=== PATIENT | male | born 1965 | race Caucasian/White ===

== ENCOUNTER 2020-07-05 22:08 | Inpatient (IN) | payer BC ==
--- NOTE | 2020-07-06 00:51 | PDOC.HHP ---
Hospitalist HPI - History of Present Illness Chest pain History of Present Illness: 55-year-old gentleman with a history of seasonal allergies presented to [facility] ER due to chest pain for about 4 days duration. Patient described midsternal and left chest pain of maximum intensity 8-10 over 10. Patient denied any fever or cough. He denied any shortness of breath or fatigue. His troponin was negative but d-dimer was elevated. 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 The mass measures 8.6 x 7 x 6 cm. Patient was then transferred here for further eval uation. Hospitalist ROS - Review of Systems Other: Except as documented, all other systems reviewed and negative. Hospitalist History - Past Medical History Other Medical History: Seasonal allergies - Past Surgical History Other Surgical History: Cholecystectomy. Anal fissure surgery - Family History Family History: reports: cancer (Father had colon cancer) - Social History Smoking Status: Former smoker (Remote history of smoking) Alcohol: reports: Occassional Drugs: reports: none Living Situation: With Family - Exam General Appearance: NAD, awake alert Eye: PERRL, anicteric sclera ENT: normocephalic atraumatic, no oropharyngeal lesions Neck: supple, symmetric, no JVD Heart: RRR, no murmur Respiratory: CTAB Respiratory - other findings: Diminished breath sounds in the left region of the lung. Gastrointestinal: soft, non-tender, non-distended, normal bowel sounds Extremities: no cyanosis, no edema Skin: normal turgor, no rashes Neurological: cranial nerve grossly intact, no focal deficits Musculoskeletal: normal tone, normal strength Psychiatric: normal affect, A&O x 3 Hospitalist H&P A/P - Problem (1) Pancoast tumor of left lung Code(s): C34.12 - MALIGNANT NEOPLASM OF UPPER LOBE, LEFT BRONCHUS OR LUNG Status: Acute (2) Metastasis Code(s): C79.9 - SECONDARY MALIGNANT NEOPLASM OF UNSPECIFIED SITE Status: Acute (3) Chest pain Code(s): R07.9 - CHEST PAIN, UNSPECIFIED Status: Acute - Plan Plan: Admit to the medical floor. We will start empiric antibiotics-Levaquin. Pain management with IV morphine and oral [place]. Supplemental oxygen as needed. Bronchodilators as needed. Consult to IR for tissue biopsy.
[2020-07-06] MEDS: Morphine 2 MG/ML VIAL SLOW IVP PRN ×2 (01:02→05:19)
[2020-07-06] MEDS: Sodium Chloride 0.9% 1,000 ML IV SCH ×2 (01:04→20:40)
[2020-07-06 04:45] LABS: #Eosinphils 0.2 thou/uL (0.0-0.7); #Lymphocytes 1.2 thou/uL (1.20-3.40); #Monocytes 0.4 thou/uL (0.11-0.59); #Neutrophils 3.7 thou/uL (1.40-6.50); %Basophils 0.2 % (0.0-1.0); %Eosinophils 3.9 % (0.0-10.0); %Lymphocytes 21.6 % (21.0-51.0); %Monocytes 7.2 % (0.0-10.0); %Neutrophils 67.2 % (42.0-75.0); Hemoglobin 12.4 g/dL (14.0-18.0); Mean Corpuscular HGB CONC 34.7 g/dL (32.0-36.0); Mean Corpuscular Hemoglobin 32.5 pg (27.0-31.0); Mean Corpuscular Volume 93.5 fL (78.0-98.0); Mean Platelet Volume 7.2 fL (7.4-10.4); Platelet Count 231 thou/uL (130-400); RBC Distribution Width 11.7 % (11.5-14.5); Red Blood Cell (RBC) Count 3.81 mill/uL (4.70-6.10); White Blood Cell (WBC) Count 5.5 thou/uL (4.8-10.8)
[2020-07-06 05:15] LABS: Anion Gap 12 mmol/L (10-20); BUN (Urea Nitrogen) 15 mg/dL (8.4-25.7); Calc. Creatinine Clearance 193 mL/min (70-130); Calcium 8.1 mg/dL (7.8-10.44); Carbon Dioxide 24 mmol/L (22-29); Chloride 102 mmol/L (98-107); Estimated GFR-MDRD Greater than 90; Glucose 111 mg/dL (70-105); Potassium 3.5 mmol/L (3.5-5.1); Sodium 134 mmol/L (136-145)
[2020-07-06] MEDS: HYDROcodone/Acetaminophen 5/325 mg Tablet PO PRN ×3 (09:20→20:40)
--- NOTE | 2020-07-06 11:36 | PDOC.HOSPP ---
- Subjective Encounter Date: 07/06/20 Encounter Time: 10:45 Subjective: no sob or palp has retrosternal chest dyscomfort with deep inpiration no fever or exposure to covid in immediate family works in oil field (regulatory product manager) quit smoking 30 yrs back, smoked 1/2 pack x 5 years before that no family h/o lung cancer, father is living had colon ca - Objective Vital Signs & Weight: Vital Signs (12 hours) Temp Pulse Resp BP Pulse Ox 07/06/20 11:15 99.0 F 66 18 132/78 98 07/06/20 07:48 66 12 07/06/20 07:32 98.3 F 64 19 131/79 96 07/06/20 03:31 97.6 F 65 18 121/64 100 07/06/20 02:13 63 12 Weight Weight 302 lb 6.4 oz Result Diagrams: 07/06/20 04:07 07/06/20 04:07 Hospitalist ROS - Medication Medications: Active Medications Generic Name Dose Route Start Last Admin Trade Name Freq PRN Reason Stop Dose Admin Hydrocodone Bitart/Acetaminophen 1 tab 07/06/20 00:42 07/06/20 09:20 Hydrocodone/Acetaminophen 5/325 Mg Tablet PO 1 tab Q4H PRN Administration Moderate Pain (4-6) Albuterol/Ipratropium 3 ml 07/06/20 01:00 07/06/20 07:48 Ipratropium/Albuterol Sulfate 3 Ml Neb NEB 3 ml [id number] PRAVIN Administration Sodium Chloride 1,000 mls @ 50 mls/hr 07/06/20 00:45 07/06/20 01:04 Normal Saline 0.9% IV 1,000 mls .Q20H PRAVIN Administration Levofloxacin 750 mg/ Device 150 mls @ 100 mls/hr 07/06/20 01:00 07/06/20 01:04 IVPB 150 mls Q24HR PRAVIN Administration Morphine Sulfate 2 mg 07/06/20 00:42 07/06/20 05:19 Morphine 2 Mg/Ml Vial SLOW IVP 2 mg Q4H PRN Administration Severe Pain (7-10) - Exam General Appearance: awake alert Eye: PERRL, anicteric sclera ENT: no oropharyngeal lesions, moist mucosa Neck: supple, no JVD Heart: RRR, no murmur Respiratory: no wheezes, no rales Gastrointestinal: soft, non-tender, non-distended, normal bowel sounds Extremities: no cyanosis, no edema Neurological: cranial nerve grossly intact, no focal deficits Psychiatric: normal affect, A&O x 3 Hosp A/P (1) Mass of left lung Code(s): R91.8 - OTHER NONSPECIFIC ABNORMAL FINDING OF LUNG FIELD Status: Acute (2) Obesity Code(s): E66.9 - OBESITY, UNSPECIFIED Status: Chronic Qualifiers: Obesity classification: adult class 3 (BMI >= 40) Body mass index: BMI 40.0-44.9 (3) Pleuritic chest pain Code(s): R07.81 - PLEURODYNIA Status: Acute - Plan had CT chest with contrast done at [facility] ER, showed a mass of 8.6 x 7 x 6 cms with erosion of 4th left rib and T3,4 vertebrae will need biopsy, await pulm advice is on empiric levaquin, may dc if ok with pulm nebs prn
--- NOTE | 2020-07-06 13:34 | RAD ---
PORTABLE CHEST: 07/06/20 HISTORY: Left lung mass. COMPARISON: None. FINDINGS: Heart size is within normal limits. The lungs are clear of any infiltrative process. I do not see any obvious mass on this exam. Slight increased density in the left hilar region is not definitive for a mass. IMPRESSION: No active intrathoracic disease. POS: OFF
--- NOTE | 2020-07-06 13:41 | CON ---
DATE OF CONSULTATION: 07/06/2020 REASON FOR CONSULTATION: Left upper lobe posterior tumor. HISTORY OF PRESENT ILLNESS: The patient is a pleasant 55-year-old male, who presented to the [facility] last night with a 4-day history of anterior chest pain. He was ruled out for COVID. He had a CT performed showing 8 x 7 x 6 cm left upper lobe posterior mass abutting the thoracic spinal column with invasion in the left 4th rib and the T3 and T4 thoracic vertebrae. Surprisingly, he does not have much pain posteriorly. He has a remote smoking history, having quit about 30 years ago. He has no history of TB exposure. He has no history of incarceration. He has lived all his life in [place]. PAST MEDICAL HISTORY: Remarkable for seasonal allergies. PAST SURGICAL HISTORY: Cholecystectomy, anal fissure surgery. FAMILY MEDICAL HISTORY: Father had colon cancer. SOCIAL HISTORY: Remote history of smoking. Does not consume alcohol except on special occasions. He is a manager furniture. REVIEW OF SYSTEMS: Twelve-point review of systems is otherwise negative including no numbness or tingling or weakness in extremities. PHYSICAL EXAMINATION: VITAL SIGNS: Temperature 99, pulse 66, respirations 18, O2 saturation 98%, and blood pressure 132/78. HEENT: Unremarkable. NECK: No adenopathy or JVD. LUNGS: Clear to auscultation. CARDIAC: S1 and S2 regular without murmur. ABDOMEN: Soft and nontender. EXTREMITIES: No clubbing, cyanosis, or edema. NEUROLOGIC: He has equal sensation in arms or legs. Motor strength 5/5 throughout. No reflexive deficits. No motor deficits. LABORATORY DATA: Sodium 134, potassium 3.5, chloride 102, CO2 of 24, BUN 15, creatinine 0.8, and glucose 111. White blood cell count 5.5, hematocrit 35.6, and platelet count 231. IMAGING DATA: I reviewed the CT scan from [facility]. ASSESSMENT: Left upper lobe posterior tumor with invasion in the rib and spinal cord. Differential diagnosis would be neoplastic versus infection. I would favor neoplasm given the appearance on CT scan. RECOMMENDATION: CT needle biopsy. Consider neurosurgical evaluation or MRI of the T-spine. We will follow with you. Job ID: [id number]
--- NOTE | 2020-07-06 16:48 | PRG ---
DATE OF SERVICE: 07/06/2020 I personally interviewed and examined the patient, agreed with the forthcoming notes of Gera Muñiz PA-C, dated 07/06/2020 or 07/07/2020. Briefly, Davin Zhou is referred to the Neurosurgery Service because of the upper thoracic lesion extending into the vertebral bodies at T3 and T4. Mr. Zhou was seen at an outside emergency department for radiating chest pain around the chest wall to the sternum and imaging revealed a Pancoast tumor of the lung, extending through the chest cavity and involving the rib heads and the vertebral bodies. We were consulted because of the spine involvement. Thankfully, Mr. Zhou has not had any leg symptoms. He does not have a sensory level. His legs are carrying him well. His balance is normal. His bowel and bladder are working normally. He has no symptoms related to the spinal cord. He does have radicular irritation, radiating in a T4 and T5 distribution around under the axilla and towards the STIR. MR imaging of the thoracic spine is yet to be done. On examination, I do not find any myelopathy. There is an upper thoracic radiculopathy on the left. We will make decisions on surgical intervention based on MR imaging. Hopefully, there is adequate room for the spinal cord. Hopefully, there is good amount of bone to provide bony stability, so that he can be treated with radiation, which would help his radiculitis. The pain management with intercostal nerve block would also help him with his pain. We will reconvene after MR imaging. (15 minutes). Job ID: [id number]
[2020-07-06] MEDS ORDERED: FLU VACC QS2020-21(6MOS UP)/PF 60 MCG/0.5 ML SYRINGE IM ONE (21:00)
--- NOTE | 2020-07-07 01:09 | CON ---
DATE OF CONSULTATION: 07/07/2020 REASON FOR CONSULTATION: Thoracic lesions. HISTORY OF PRESENT ILLNESS: Mr. Zhou is a 55-year-old gentleman, who was seen at [facility] due to chest pain. He was being ruled out for COVID and had a CT of the chest showing left upper lobe mass extending into his thoracic vertebra REVIEW OF SYSTEMS: CONSTITUTIONAL: Denies fever or chills. ENT: Denies change in vision or hearing. CARDIAC: Denies shortness of breath or diaphoresis. Reports chest pain. PULMONARY: Denies shortness of breath, cough, or hemoptysis. GI: Denies abdominal pain, nausea, vomiting, diarrhea, or change in stool formation and consistency. : Denies trouble with urination, frequency of urination, or bloody urine. SKIN: Denies skin rash, bruising, bleeding, or skin masses. MUSCULOSKELETAL: As per history of present illness. NEUROLOGIC: As per history of present illness. PSYCHOLOGIC: Denies anxiety, depression, or behavior changes. MEDICAL HISTORY: Seasonal allergies. SURGICAL HISTORY: Cholecystectomy and anal fissure surgery. FAMILY HISTORY: Father diagnosed with colon cancer. SOCIAL HISTORY: Occasional smoker and occasionally drinks alcohol. Denies illicit drug use. PHYSICAL EXAMINATION: VITAL SIGNS: BP 136/80, pulse is 72, respiratory rate 16, and temperature 98.6. HEENT: Pupils are equal. Extraocular movements are intact. NECK: Soft and supple. No masses are noted. Range of motion is intact and nonpainful. NEUROLOGIC: Awake, alert, and oriented x3. Memory, attention, and fund of knowledge are normal. Cranial nerves are grossly intact. Neurological, he has equal sensation in arms and legs. Motor strength is 5/5 in his upper and lower extremities. No reflex deficit. No motor deficit. IMAGING: CT, 8 x 7 x 6 cm left upper lobe posterior mass with destruction left T3 and T4 vertebra ASSESSMENT: 1. Pancoast tumor of the left lung. 2. Metastasis to the spine. 3. Chest pain. PLAN: MRI of the T-spine with and without contrast to assess for T-spine to consider if neurosurgery is warranted. Job ID: [id number] MTDD
[2020-07-07 04:47] LABS: #Eosinphils 0.2 thou/uL (0.0-0.7); #Lymphocytes 1.2 thou/uL (1.20-3.40); #Monocytes 0.5 thou/uL (0.11-0.59); #Neutrophils 3.7 thou/uL (1.40-6.50); %Basophils 0.5 % (0.0-1.0); %Eosinophils 3.4 % (0.0-10.0); %Lymphocytes 21.6 % (21.0-51.0); %Neutrophils 65.5 % (42.0-75.0); Hemoglobin 12.3 g/dL (14.0-18.0); Mean Corpuscular HGB CONC 34.4 g/dL (32.0-36.0); Mean Corpuscular Hemoglobin 31.9 pg (27.0-31.0); Mean Corpuscular Volume 92.7 fL (78.0-98.0); Mean Platelet Volume 7.3 fL (7.4-10.4); Platelet Count 248 thou/uL (130-400); Red Blood Cell (RBC) Count 3.86 mill/uL (4.70-6.10); White Blood Cell (WBC) Count 5.6 thou/uL (4.8-10.8)
[2020-07-07 04:54] LABS: PTT 31.5 sec (22.9-36.1); Prothrombin Time 13.9 sec (12.0-14.7)
[2020-07-07 05:14] LABS: ALT (SGPT) 14 U/L (8-55); AST (SGOT) 11 U/L (5-34); Albumin 3.7 g/dL (3.5-5.0); Alkaline Phosphatase 44 U/L (40-110); Anion Gap 13 mmol/L (10-20); BUN (Urea Nitrogen) 12 mg/dL (8.4-25.7); Bilirubin, Total 0.5 mg/dL (0.2-1.2); Calc. Creatinine Clearance 193 mL/min (70-130); Calcium 8.2 mg/dL (7.8-10.44); Carbon Dioxide 22 mmol/L (22-29); Chloride 105 mmol/L (98-107); Estimated GFR-MDRD Greater than 90; Glucose 95 mg/dL (70-105); Potassium 3.8 mmol/L (3.5-5.1); Protein, Total 6.7 g/dL (6.0-8.3); Sodium 136 mmol/L (136-145)
[2020-07-07] MEDS: HYDROcodone/Acetaminophen 5/325 mg Tablet PO PRN ×5 (05:50→22:32)
--- NOTE | 2020-07-07 11:08 | PDOC.HOSPP ---
- Subjective Encounter Date: 07/07/20 Encounter Time: 09:00 Subjective: no new complaints is getting his echo done - Objective Vital Signs & Weight: Vital Signs (12 hours) Temp Pulse Resp BP Pulse Ox 07/07/20 08:55 94 L 07/07/20 08:35 98.2 F 75 18 135/78 94 L 07/07/20 06:54 73 15 07/07/20 03:48 97.1 F L 79 18 130/71 94 L 07/07/20 00:08 12 07/07/20 00:00 98.6 F Weight Weight 302 lb 1.6 oz I&O: 07/06/20 07/07/20 07/08/20 06:59 06:59 06:59 Intake Total 3021 Balance 3021 Result Diagrams: 07/07/20 04:18 07/07/20 04:18 Hospitalist ROS - Medication Medications: Active Medications Generic Name Dose Route Start Last Admin Trade Name Freq PRN Reason Stop Dose Admin Hydrocodone Bitart/Acetaminophen 1 tab 07/06/20 00:42 07/07/20 10:07 Hydrocodone/Acetaminophen 5/325 Mg Tablet PO 1 tab Q4H PRN Administration Moderate Pain (4-6) Albuterol/Ipratropium 3 ml 07/06/20 01:00 07/07/20 06:54 Ipratropium/Albuterol Sulfate 3 Ml Neb NEB 3 ml [id number] PRAVIN Administration Sodium Chloride 1,000 mls @ 50 mls/hr 07/06/20 00:45 07/06/20 20:40 Normal Saline 0.9% IV 1,000 mls .Q20H PRAVIN Administration Levofloxacin 750 mg/ Device 150 mls @ 100 mls/hr 07/06/20 01:00 07/07/20 01:25 IVPB 150 mls Q24HR PRAVIN Administration Morphine Sulfate 2 mg 07/06/20 00:42 07/06/20 05:19 Morphine 2 Mg/Ml Vial SLOW IVP 2 mg Q4H PRN Administration Severe Pain (7-10) - Exam General Appearance: awake alert Eye: PERRL, anicteric sclera ENT: no oropharyngeal lesions, moist mucosa Neck: supple, no JVD Heart: RRR, no murmur Respiratory: no wheezes, no rales Gastrointestinal: soft, non-tender, non-distended, normal bowel sounds Extremities: no cyanosis, no edema Neurological: cranial nerve grossly intact, no focal deficits Psychiatric: normal affect, A&O x 3 Hosp A/P (1) Mass of left lung Code(s): R91.8 - OTHER NONSPECIFIC ABNORMAL FINDING OF LUNG FIELD Status: Acute (2) Obesity Code(s): E66.9 - OBESITY, UNSPECIFIED Status: Chronic Qualifiers: Obesity classification: adult class 3 (BMI >= 40) Body mass index: BMI 40.0-44.9 (3) Pleuritic chest pain Code(s): R07.81 - PLEURODYNIA Status: Acute - Plan had CT chest with contrast done at [facility], showed a mass of 8.6 x 7 x 6 cms with erosion of 4th left rib and T3,[address] guided biopsy in am by intervention rad Thoracic spine MRI for completion and to see extent of lesion/erosion into spine nebs prn hemo/neurostable
[2020-07-07] MEDS ORDERED: Magnevist 469MG/ML 20 ML VIAL ONE (14:16)
[2020-07-07] MEDS: Morphine 2 MG/ML VIAL SLOW IVP PRN (15:07)
--- NOTE | 2020-07-07 17:38 | MRI ---
MRI THORACIC SPINE WITH AND WITHOUT CONTRAST: Indications: History of left upper lobe lung mass with erosion of T3, T4. Comparison: None. No indications given as to where this diagnosis arose. FINDINGS: The thoracic vertebrae maintain height and alignment. The disc spaces are preserved. There is a large soft tissue mass involving the posterior left chest wall. It is incompletely evaluat ed on this MRI of the thoracic spine. It begins superiorly at the level of T2-3 disc space and involv es the posterior pleural surface. At the T3 vertebral body level it involves the posterior chest wall and extends through the posterior chest wall into the left paravertebral soft tissues and extends po steriorly to involve the left paraspinal musculature. At the T3-4 disc level, this mass is measured u p to 10 cm AP dimension in the axial plane, but is incompletely imaged. This mass produces rib destru ction at T3, T4 levels. It involves the posterior elements on the left at T4 involving the left ramos sverse process, pedicle, and probably lamina. There is extension into the epidural space on the left, probably through the foramina at T4-5. This r esults in an enhancing mass within the spinal canal laterally on the left which is compressing and di splacing the cord to the right. This enhancing intraspinal mass measures up to 4.5 cm craniocaudal in the sagittal plane and measures 1.7 cm AP dimension within the spinal canal. There appears to be belgica e severe central canal stenosis and cord compression at T4. The mass extends to the T5-6 disc level. Below T6 the spinal canal appears unremarkable and the cord below T6 exhibits normal signal without c entral canal stenosis. IMPRESSION: 1. Posterior chest wall mass on the left which is in a paravertebral location with osseous destr uction involving the T3 and T4 vertebra with more extensive involvement at T4 involving the left T4 p edicle and posterior elements. It involves the T3 and T4 ribs. It involves posterior paraspinal muscu lature at T4. There is extension into the spinal canal which appears to be through the foramina at T4 -5 and there is a large intraspinal mass which extends from the T2-3 disc inferiorly to the mid T5 ve rtebral body with dimensions given above. This intraspinal epidural mass is producing severe compress ion and displacement of the thoracic cord at the T4 level. 2. Recommend chest CT with contrast for further characterization of the chest findings which are not completely imaged on this study. POS: AGW
[2020-07-07] MEDS: Sodium Chloride 0.9% 1,000 ML IV SCH (21:20)
[2020-07-08] MEDS: Sodium Chloride 0.9% 1,000 ML IV SCH ×2 (00:30→15:06)
[2020-07-08] MEDS: HYDROcodone/Acetaminophen 5/325 mg Tablet PO PRN ×3 (03:39→13:59)
--- NOTE | 2020-07-08 06:58 | PRG ---
DATE OF SERVICE: 07/08/2020 I saw Mr. Zhou in his hospital room this morning. He is told that he is scheduled for needle aspiration/needle biopsy of his posterior chest wall rib spine lesion today. Lesion is large and obtaining tissue and hopefully should not be a major issue. Mr. Zhou has some numbness in the left leg and the right side of the abdomen does not feel exactly the same, it is the left to pressure. He is however ambulatory and got around the room quite easily yesterday. Vitals are stable. Stable. the neurological examination shows mild, if any myelopathy. Pain and temp on the right abdomen abdomen and leg on the right is bit less, but I do not see significant motor weakness on the left. MR imaging of the thoracic spine shows lesion involving the rib heads in the posterior thoracic wall and lungs also invades into the spinal canal, pushes the cord to the other side of the canal. There is no significant T2 signal change in the cord, but the mass effect is significant. 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 I told Mr. Zhou that it is very likely that decompression of the spinal cord would offer him improvement, so I would offer him protection of his cord and likely better neurologic function going forward. If this is a small cell lesion, one might consider chemoradiotherapy as they respond quite quickly and we could decompress his cord without surgical intervention in that case. A lymphoma may be similar. Other neoplasms, however, will not respond as quickly and I think he would benefit from surgical intervention in that case. I spoke with Cas Metcalf of Thoracic Surgery to see if they like to be involved in the case and he is going to review that this morning. (15 min) Job ID: [id number] MTDD
[2020-07-08] MEDS ORDERED: Sodium Bicarbonate 2.5 MEQ/5 ML VIAL ONE (10:21)
[2020-07-08] MEDS ORDERED: Midazolam HCl 2 mg/2 ml Vial ONE (10:21)
[2020-07-08] MEDS ORDERED: Fentanyl 100 MCG/2 ML VIAL ONE (10:22)
[2020-07-08] MEDS: Morphine 2 MG/ML VIAL SLOW IVP PRN ×2 (10:38→19:26)
--- NOTE | 2020-07-08 11:54 | PDOC.HOSPP ---
- Subjective Encounter Date: 07/08/20 Encounter Time: 10:35 Subjective: no cough or sob has left leg parasthesias and weakness but is ambulating in room - Objective Vital Signs & Weight: Vital Signs (12 hours) Temp Pulse Resp BP Pulse Ox 07/08/20 07:51 76 16 96 07/08/20 03:39 98.5 F 69 18 142/82 H 95 07/08/20 00:32 12 Weight Weight 300 lb I&O: 07/07/20 07/08/20 07/09/20 06:59 06:59 06:59 Intake Total 3021 3480 Balance 3021 3480 Result Diagrams: 07/07/20 04:18 07/07/20 04:18 Hospitalist ROS - Medication Medications: Active Medications Generic Name Dose Route Start Last Admin Trade Name Freq PRN Reason Stop Dose Admin Hydrocodone Bitart/Acetaminophen 1 tab 07/06/20 00:42 07/08/20 09:36 Hydrocodone/Acetaminophen 5/325 Mg Tablet PO 1 tab Q4H PRN Administration Moderate Pain (4-6) Albuterol/Ipratropium 3 ml 07/06/20 01:00 07/08/20 07:51 Ipratropium/Albuterol Sulfate 3 Ml Neb NEB 3 ml [id number] PRAVIN Administration Sodium Chloride 1,000 mls @ 50 mls/hr 07/06/20 00:45 07/08/20 00:30 Normal Saline 0.9% IV 1,000 mls .Q20H PRAVIN Administration Levofloxacin 750 mg/ Device 150 mls @ 100 mls/hr 07/06/20 01:00 07/08/20 00:29 IVPB 150 mls Q24HR PRAVIN Administration Morphine Sulfate 2 mg 07/06/20 00:42 07/08/20 10:38 Morphine 2 Mg/Ml Vial SLOW IVP 2 mg Q4H PRN Administration Severe Pain (7-10) - Exam General Appearance: awake alert Eye: PERRL, anicteric sclera ENT: no oropharyngeal lesions, moist mucosa Neck: supple, no JVD Heart: RRR, no murmur Respiratory: no wheezes, no rales Gastrointestinal: soft, non-tender, non-distended, normal bowel sounds Extremities: no cyanosis, no edema Neurological: cranial nerve grossly intact, no new deficit Psychiatric: normal affect, A&O x 3 Hosp A/P (1) Mass of left lung Code(s): R91.8 - OTHER NONSPECIFIC ABNORMAL FINDING OF LUNG FIELD Status: Acute (2) Obesity Code(s): E66.9 - OBESITY, UNSPECIFIED Status: Chronic Qualifiers: Obesity classification: adult class 3 (BMI >= 40) Body mass index: BMI 40.0-44.9 (3) Pleuritic chest pain Code(s): R07.81 - PLEURODYNIA Status: Acute - Plan had CT chest with contrast done at [facility] ER, showed a mass of 8.6 x 7 x 6 cms with erosion of 4th left rib and T3,4 vertebrae is s/p CT guided biopsy by intervention rad 07/08 Thoracic spine MRI results noted await histopath report echo shows normal ef and valvular function nebs prn hemo/neurostable
--- NOTE | 2020-07-08 13:09 | CT ---
Left chest wall mass biopsy CT-guided HISTORY: Chest mass. FINDINGS: After explaining the procedure and answering all questions, limited CT imaging of the chest was performed. Sterile technique, buffered local anesthesia, CT guidance, and a posterior approach were used to care fully advance a 17-gauge trocar needle into the left posterior chest wall mass. Position was confirmed with CT imaging. A total of 2 3cm 18-gauge core biopsy specimens were obtained and eventually submitted to pathology for evaluation. Needle was removed. No evidence of complication. Patient tolerated the procedure well and was returne d in unchanged condition. IMPRESSION : Technically successful CT-guided biopsy left chest wall mass. Pathology is pending.
[2020-07-08] MEDS ORDERED: Dexamethasone 10 MG/ML VIAL SLOW IVP SCH (20:45)
[2020-07-09] MEDS: Morphine 2 MG/ML VIAL SLOW IVP PRN ×3 (00:09→20:57)
--- NOTE | 2020-07-09 05:10 | PRG ---
DATE OF SERVICE: SUBJECTIVE: Mr. Zhou is a 55-year-old gentleman, currently undergoing evaluation for a posterior thoracic wall mass with infiltration of the upper thoracic spine. Yesterday, he underwent a percutaneous biopsy by Radiology. Over the course of the day yesterday, he had experienced worsening numbness. We received a call last evening that he had had worsening weakness in his legs. He was able to move his feet but was not antigravity at the hip flexors. We started him on high dose steroids. He sat up to try to use the urinal and then subsequently he had a fall. He did not lose consciousness nor does he have any outward signs of injury. I saw him earlier this morning, where he has dramatic overall improvement in his neurologic function. According to him, he is nearly back to baseline with respect to his motor function. He continues to have numbness. He is alert and oriented x4. My plan is to go ahead and perform a CT scan of the thoracic spine for surgical planning purposes, but also to be certain there is no trauma associated with his fall or any significant changes associated with the biopsy. Job ID: [id number] [facility]
[2020-07-09] MEDS: Sodium Chloride 0.9% 1,000 ML IV SCH (06:36)
--- NOTE | 2020-07-09 07:47 | PRG ---
DATE OF SERVICE: SUBJECTIVE: I saw Mr. Zhou on the oncology floor. He has been moved out of the second floor to the Oncology Unit. Overnight, he had some abrupt onset weakness that markedly improved with steroids. Nursing staff has not got him out of bed because of a fall. He has been having some hesitancy emptying his urinary bladder. I do not see any fevers recorded overnight. Blood pressures have been in the 120s to 160s. There is good strength against resistance in the lower extremities. This has improved since his bout of weakness yesterday evening. The CT has been done of the thoracic spine, showing the tumor. There is no significant bony loss other than the transverse process and the rib heads at T4. I was hoping to be able to wait for the results of pathology to make a final decision. 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 INFORMED CONSENT: I have discussed indications, risks, benefits, alternatives, and expected outcomes from a thoracic laminectomy and partial tumor resection. The risks we discussed included, but were not limited to, bleeding, infection, CSF leak, nerve damage, paralysis, incontinence, wheelchair dependence, cardiopulmonary complications of anesthesia, and . He understands the risks and wants to proceed. We will make arrangements for this to happen soon. (15 minutes). Job ID: [id number]
--- NOTE | 2020-07-09 08:48 | CT ---
PRELIMINARY REPORT/[facility]/EMERGENCY AFTER HOURS PROCEDURE: EXAM: CT Thoracic Spine Without Intravenous Contrast. CLINICAL HISTORY: Pt c/o upper back pain with numbness to bilateral lower extremities. Pt had a CT Lung biopsy done on 07/08/20 TECHNIQUE: Axial computed tomography images of the thoracic spine without intravenous contrast. Sagittal and cor onal reformations performed. CONTRAST: Without COMPARISON: NONE PROVIDED. FINDINGS: There is a large destructive expansile rib lesion on the left involving rib #4. The mass extends to the left T4 transverse process with likely compromise of the neural foramen at T4 however there is no OBVIOUS tumor extension into the central canal or compromise of the thoracic spinal cord. MRI obvio usly would be much better suited for this determination. Remainder of the thoracic spine appears grossly intact other than some degenerative changes. IMPRESSION: Large expansile rib lesion involving posterior left rib #4 with involvement of the transverse process and likely compromise of the left T4 neural foramen but again no obvious compromise of the central c anal or thoracic cord. No specific findings related to a possible complication of the patient's rece nt biopsy. Again MRI is suggested for follow-up if symptoms persist. ELECTRONICALLY SIGNED BY: Gera Medina MD Jul 09, 2020 5:24:51 AM CDT This report is intended for review by the ordering physician only, in accordance of law. If you recei ve this report in error, please call [facility] at [phone]. FINAL REPORT CT THORACIC SPINE: The chest wall mass involving the posterior left chest wall in a paravertebral location is again seen . This was described on MRI thoracic spine. It involves the left fourth rib with destructive process and large soft tissue component. Involvement of T4 vertebra is more apparent on MRI findings. The int raspinal component with compression of the thoracic cord is also better appreciated on MRI. The preliminary report stated no obvious compromise of central canal or thoracic cord; however, MRI d emonstrates significant cord compression. This cord compression is not readily apparent on the CT. I am in agreement with the preliminary report. Please correlate with MRI thoracic spine which better defines osseous involvement and demonstrates extension of this mass through the left T4-5 foramina in to the spinal canal with severe cord compression. POS: AGW
--- NOTE | 2020-07-09 12:49 | CT ---
Left chest wall mass biopsy CT-guided HISTORY: Chest mass. FINDINGS: After explaining the procedure and answering all questions, limited CT imaging of the chest was performed. Sterile technique, buffered local anesthesia, CT guidance, and a posterior approach were used to care fully advance a 17-gauge trocar needle into the left posterior chest wall mass. Position was confirmed with CT imaging. A total of 2 3cm 18-gauge core biopsy specimens were obtained and eventually submitted to pathology for evaluation. Needle was removed. No evidence of complication. Patient tolerated the procedure well and was returne d in unchanged condition. IMPRESSION : Technically successful CT-guided biopsy left chest wall mass. Pathology is pending. Transcribed Date/Time: 07/09/2020 12:49 PM
[2020-07-09] MEDS ORDERED: Bupivacaine HCl 0.5%/Epinephrine 1:200,000/PF 30 ml Vial ONE (13:32)
[2020-07-09] MEDS ORDERED: Sodium Chloride 0.9% 10 ML ONE (13:32)
[2020-07-09] MEDS ORDERED: Thrombin 5000 UNITS/5 ML VIAL ONE (13:32)
[2020-07-09] MEDS ORDERED: Famotidine/PF 20 mg/2ml Vial ONE (13:39)
[2020-07-09] MEDS ORDERED: Fentanyl 100 MCG/2 ML VIAL ONE ×2 (13:39→16:09)
[2020-07-09] MEDS ORDERED: SUGAMMADEX SODIUM 200 MG/2 ML VIAL ONE (13:40)
[2020-07-09] MEDS ORDERED: Ketorolac Tromethamine 30 MG/ML VIAL ONE (13:46)
[2020-07-09] MEDS ORDERED: PROPOFOL 200 MG/20 ML VIAL ONE (13:46)
[2020-07-09] MEDS ORDERED: Metoclopramide HCl 10 MG/2 ML VIAL ONE (13:46)
[2020-07-09] MEDS ORDERED: PHENYLEPHRINE-NS 100 MCG/ML 10 ML SYRINGE ONE ×2 (13:46→16:23)
[2020-07-09] MEDS ORDERED: Rocuronium Bromide 10 MG/ML (10ML VIAL) ONE (13:46)
[2020-07-09] MEDS ORDERED: Ondansetron PF 4 MG/2 ML Vial ONE (13:46)
[2020-07-09] MEDS ORDERED: Dexamethasone 20 MG/5 ML VIAL ONE (13:46)
[2020-07-09] MEDS ORDERED: Lidocaine 1% PF 5 ML VIAL ONE (13:46)
[2020-07-09] MEDS ORDERED: Vecuronium 10 MG VIAL ONE (13:46)
[2020-07-09] MEDS ORDERED: EPHEDRINE 25 MG/5 ML SYRINGE ONE (13:46)
[2020-07-09] MEDS: Dexamethasone 4 mg/ml Vial SLOW IVP SCH ×2 (13:53→20:57)
[2020-07-09] MEDS ORDERED: HYDROmorphone 2 MG/ML VIAL ONE (17:31)
[2020-07-09] MEDS ORDERED: Promethazine 25 MG TAB PO PRN (18:17)
[2020-07-09] MEDS ORDERED: Mag-Al 1200 mg/1200 mg/30 ML UDCUP PO PRN (18:17)
[2020-07-09] MEDS ORDERED: diphenhydrAMINE 25 MG CAP PO PRN (18:17)
[2020-07-09] MEDS ORDERED: Tamsulosin HCl 0.4 MG CAP PO PRN (18:17)
[2020-07-09] MEDS ORDERED: Promethazine HCl 25 MG/ML VIAL IM PRN ×2 (18:17→18:26)
[2020-07-09] MEDS ORDERED: tiZANidine HCl 4 MG TAB PO PRN (18:17)
[2020-07-09] MEDS ORDERED: Acetaminophen 325 MG TAB PO PRN (18:17)
[2020-07-09] MEDS ORDERED: Milk Of Magnesia 30 ML UDCUP PO PRN (18:17)
[2020-07-09] MEDS ORDERED: Scopolamine 1.5 mg/72 hour Patch TD PRN (18:17)
[2020-07-09] MEDS ORDERED: Ondansetron HCl/PF 4 MG/2 ML Vial IVP PRN (18:26)
[2020-07-09] MEDS ORDERED: Morphine Sulfate 2 MG/ML SYRINGE SLOW IVP PRN (18:26)
[2020-07-09] MEDS ORDERED: PACU-Morphine 4MG/ML VIAL SLOW IVP PRN (18:26)
[2020-07-09] MEDS ORDERED: Promethazine HCl 25 MG/ML VIAL SLOW IVP PRN (18:26)
[2020-07-09] MEDS ORDERED: HYDROmorphone 2 MG/ML VIAL SLOW IVP PRN (18:26)
[2020-07-09] MEDS: CEFAZOLIN 2 GM in Premix Bag 1 BAG IVPB SCH (19:29)
--- NOTE | 2020-07-09 23:42 | OP ---
DATE OF PROCEDURE: 07/09/2020 BURR SANDER: Gera Muñiz PA-C PREOPERATIVE INDICATION: Prevent neurological deterioration. PREOPERATIVE DIAGNOSES: Left chest wall and spine mass, invasion into spinal canal, intractable left T4 radiculopathic pain, and early myelopathy. POSTOPERATIVE DIAGNOSES: Left chest wall and spine mass, invasion into spinal canal, intractable left T4 radiculopathic pain, and early myelopathy. PROCEDURE PERFORMED: Decompressive laminectomy T3 through T5, microsurgical resection of intraspinal extradural lesion, sacrifice of T4 nerve root on the left, operating microscope. PREOPERATIVE MEDICATION: Ancef 2 g IV. DRAIN NUMBER: Zero. DRAIN TYPE: None. DESCRIPTION OF PROCEDURE: The patient was brought to the operating room. General endotracheal anesthesia was induced. The patient was positioned prone on the Donis frame with the appropriate padding for the chest and hips. The arms were taped to the side of the Donis frame. An AP fluoro radiograph was used to plan our incision. The upper thoracic skin was sterilely prepped and draped. We made our incision midline and controlled bleeding with bipolar cautery. We used monopolar cautery to dissect through subcutaneous tissues to the thoracodorsal fascia. We incised the fascia in the midline and reflected paraspinal muscles off the spinous process and lamina of T3, T4 and T5. Self-retaining retractor was placed. An AP fluoro radiograph confirmed the levels upon which we were operating. We then used an Adson rongeur to remove the spinous process of T3, T4, T5. 2 mm and 3 mm Kerrison rongeurs were used to fashion a laminectomy. First, we opened down the midline from T5 to T3, we widened our laminectomy defect. There is a mcnamara to purple fleshy substance in the left side of the spinal canal deflecting the thecal sac to the right, this was centered at T4. Once we had decompressed all the way out to the pedicles on both sides at T3, T4, T5, the operative microscope was brought into the field. Under microscopic magnification using microsurgical techniques, we carefully peeled abnormal tissue off the side of the dura. We made our way to the lateral aspect of the spinal canal. The lesion extended from the top of T4 to the midportion of T5. The lesion was ventral to the T4 nerve root. We used silk suture and tied off the nerve root, coagulated it distally and cut it and this gave us access to the ventral aspect of the spinal canal. I removed mcnamara fleshy tumor tissue from his spinal canal in its entirety. We did not dissect lateral to the foramen or into the chest cavity. With the dura nicely decompressed and having resumed its midline course down the spinal canal, we began our closure. We irrigated copiously with bacitracin irrigation. We waxed the bone edges. We closed the wound in anatomical layers. We applied a sterile dressing. We closed over vancomycin powder. This was a clean case, no contamination. Job ID: [id number]
[2020-07-10] MEDS: CEFAZOLIN 2 GM in Premix Bag 1 BAG IVPB SCH (03:17)
--- NOTE | 2020-07-10 08:01 | PRG ---
DATE OF SERVICE: 07/10/2020 I saw Davin Zhou in the oncology unit this morning. He tells me his legs feel much better than they did before the operation and that his radiating chest wall pain is gone on the left side. He says there is still some residual numb feeling in the leg and that he did not get out of bed yet, but that he feels stronger. Overnight, the vitals have been stable. On examination, the flexors of the lower extremities are quite strong. Touch pain and temperature seem to be symmetric now and there is no T4 radiculopathy. Pathology is pending. Mr. Zhou has a posterior chest wall mass on the left side, which invaded into the spinal canal and compressed the cord. He will need chemoradiotherapy. We should get this done on the sooner side rather than later to avoid the possibility of regrowth into the spinal canal. The spinal canal itself is cleared out completely, but there is tumor just outside the neural foramen. We will leave the sutures in, a month if necessary. If radiation starts in 10 to 14 days, then the vertical mattress sutures can be left in even longer than that. Job ID: [id number]
[2020-07-10] MEDS ORDERED: Magnevist 469MG/ML 20 ML VIAL ONE (08:59)
[2020-07-10] MEDS: HYDROcodone/Acetaminophen 5/325 mg Tablet PO PRN (09:54)
[2020-07-10] MEDS: Dexamethasone 4 mg/ml Vial SLOW IVP SCH ×2 (10:40→19:54)
--- NOTE | 2020-07-10 11:39 | PDOC.HOSPP ---
- Subjective Encounter Date: 07/10/20 Encounter Time: 10:30 Subjective: is sitting in chair has numbness in his left leg, no difficulty to moving it no sob - Objective Vital Signs & Weight: Vital Signs (12 hours) Temp Pulse Resp BP Pulse Ox 07/10/20 08:00 98.9 F 83 18 136/64 97 07/10/20 07:39 74 18 92 L 07/10/20 04:00 97.7 F 61 16 102/55 L 100 07/10/20 00:23 74 20 100 07/09/20 23:55 97.3 F L 71 16 117/58 L 100 Weight Weight 300 lb I&O: 07/09/20 07/10/20 07/11/20 06:59 06:59 06:59 Intake Total 1880 2400 Output Total 2200 4750 Balance -320 -2350 Result Diagrams: 07/07/20 04:18 07/07/20 04:18 Hospitalist ROS - Medication Medications: Active Medications Generic Name Dose Route Start Last Admin Trade Name Freq PRN Reason Stop Dose Admin Hydrocodone Bitart/Acetaminophen 1 tab 07/06/20 00:42 07/10/20 09:54 Hydrocodone/Acetaminophen 5/325 Mg Tablet PO 1 tab Q4H PRN Administration Moderate Pain (4-6) Albuterol/Ipratropium 3 ml 07/06/20 01:00 07/10/20 07:39 Ipratropium/Albuterol Sulfate 3 Ml Neb NEB 3 ml [id number] PRAVIN Administration Dexamethasone 4 mg 07/09/20 09:00 07/10/20 10:40 Dexamethasone 4 Mg/Ml Vial SLOW IVP 4 mg BID PRAVIN Administration Sodium Chloride 1,000 mls @ 50 mls/hr 07/06/20 00:45 07/09/20 06:36 Normal Saline 0.9% IV 1,000 mls .Q20H PRAVIN Administration Levofloxacin 750 mg/ Device 150 mls @ 100 mls/hr 07/06/20 01:00 07/10/20 01:38 IVPB 150 mls Q24HR PRAVIN Administration Morphine Sulfate 2 mg 07/06/20 00:42 07/09/20 20:57 Morphine 2 Mg/Ml Vial SLOW IVP 2 mg Q4H PRN Administration Severe Pain (7-10) Pantoprazole Sodium 40 mg 07/09/20 09:00 07/10/20 10:40 Pantoprazole 40 Mg Tab PO 40 mg DAILY PRAVIN Administration - Exam General Appearance: awake alert Eye: PERRL, anicteric sclera ENT: no oropharyngeal lesions, moist mucosa Neck: supple, no JVD Heart: RRR, no murmur Respiratory: no wheezes, no rales Gastrointestinal: soft, non-tender, non-distended, normal bowel sounds Extremities: no cyanosis, no edema Neurological: cranial nerve grossly intact, no new deficit Psychiatric: normal affect, A&O x 3 Hosp A/P (1) Mass of left lung Code(s): R91.8 - OTHER NONSPECIFIC ABNORMAL FINDING OF LUNG FIELD Status: Acute (2) Obesity Code(s): E66.9 - OBESITY, UNSPECIFIED Status: Chronic Qualifiers: Obesity classification: adult class 3 (BMI >= 40) Body mass index: BMI 40.0-44.9 (3) Pleuritic chest pain Code(s): R07.81 - PLEURODYNIA Status: Acute - Plan had CT chest with contrast done at [facility] ER, showed a mass of 8.6 x 7 x 6 cms with erosion of 4th left rib and T3,4 vertebrae is s/p CT guided biopsy by intervention rad 07/08 s/p decompressive laminectomy T3-5 with sacrifice of T4 nr root, 07/09/2020. await histopath report echo shows normal ef and valvular function nebs prn hemo/neurostable onc and rad onc are consulted
--- NOTE | 2020-07-10 15:27 | CON ---
DATE OF CONSULTATION: 07/10/2020 REASON FOR CONSULTATION: Mr. Zhou is a 55-year-old gentleman with at least a clinical stage IIIC, T4 N3 M0 likely lung cancer, who underwent decompressive spinal surgery yesterday. HISTORY OF PRESENT ILLNESS: Mr. Zhou states that only for about a week as he had been having problems. He developed chest pain beginning about a week ago. He thought it was a pulled muscle because he was in the process of moving. On Wednesday, the pain had gotten fairly severe, so he went to the emergency room. He had a CT scan performed of the chest there in the emergency room, which showed a large mass measuring 8.6 x 7.0 x 6.0 cm in the left upper lobe of the lung that was eroding posteriorly into the chest wall with suspected extension into the T3-T4 and T4-T5 neural foramina. There was also a 4 cm left supraclavicular lymph node on the scan. He was admitted to [facility] for workup and evaluation. On Wednesday, he began having difficulty with some numbness in his legs and more difficulty with walking. He underwent an MRI of the spine on 07/07/2020, which showed osseous destruction of T3 and T4 by the lung/chest wall mass that was extending into the spinal canal. There was a large intraspinous mass component that was producing severe compression and displacement of thoracic cord at the T4 level. On 07/08/2020, he had a CT-guided biopsy of the chest wall mass. He saw Dr. Harden, and on 07/09/2020, he underwent a decompressive laminectomy from T3 through T5 with microsurgical resection of the intraspinal extradural lesion and sacrifice of the T4 nerve root. The tumor intraoperatively extended from the top of T4 to the midportion of T5. The tumor was removed from the spinal canal, but the dissection did not go laterally to the foramina or into the chest cavity. The dura was decompressed and the spinal cord was midline at the conclusion of the case. Pathology from both the biopsy and the surgery are currently pending. This morning, he has had some improvement with some improvement in his sensation, although he still has significant numbness over the abdomen and legs. I have been asked to see him to discuss his options with radiation. He does report that the pain in his chest has resolved. He is having some pain in the back, but this is more on the right side since the surgery. He has no shortness of breath or weight loss. His legs feel stronger, but he does need assistance with walking. He voices no other complaints. PAST MEDICAL HISTORY: 1. History of DVT in 2007 with no pulmonary embolus. 2. Status post cholecystectomy. 3. Status post anal fistula surgery. 4. Status post deviated septum repair. MEDICATIONS: 1. Dexamethasone. 2. Maalox. 3. [place]. 4. Levaquin. 5. Protonix. ALLERGIES: DEMEROL, WHICH CAUSES DECREASE IN BLOOD PRESSURE. FAMILY HISTORY: His father is still living at age 81 and has a history of colon cancer. His mother is still living at age 81 with no medical problems. There is no other family history of malignancy. SOCIAL HISTORY: He briefly smoked less than 1 pack per day for 3 or 4 years, but has not smoked cigarettes for 30 years. He drinks 4 alcoholic beverages per week. He lives in [place], [place] with his . He works in [place], [place]. REVIEW OF SYSTEMS: A 12-system review of systems is otherwise negative. This is reviewed with patient by me. PHYSICAL EXAMINATION: VITAL SIGNS: Height 5 feet 10 inches. Weight 300 pounds. Blood pressure is 136/64, pulse is 83, respirations are 18, temperature is 98.9, O2 saturation is 97%. CONSTITUTIONAL: He is alert and oriented and in no apparent distress. He is well developed and well nourished. Karnofsky performance status is 70%. EYES: Pupils are equal, round, and reactive to light. Extraocular movements are intact. ENT: Oral cavity and oropharynx are normal without lesion or erythema. Palate elevates symmetrically. Gingiva is intact. NECK: Supple without cervical or supraclavicular adenopathy on the right. On the left, there is no preauricular, submandibular, cervical adenopathy. He does have a 4 cm left supraclavicular lymph node. No thyromegaly. Larynx midline. LUNGS: Breathing nonlabored. Clear to auscultation anteriorly and posteriorly and clear to percussion. HEART: Regular rate and rhythm without murmur. No lower extremity edema. BACK: No tenderness on gentle palpation of his spine. There is no palpable mass in the chest wall. LYMPHATIC: No axillary or inguinal adenopathy. ABDOMEN: Obese, soft, nontender, nondistended without mass or hepatosplenomegaly. Liver percusses to normal size. SKIN: Without rash or purpura. NEUROLOGIC: Cranial nerves 2 through 12 are grossly intact. Motor strength is 5/5 in both upper and lower extremities in all muscle groups tested. Reflexes are brisk, but symmetrical. Gait was observed with the use of physical therapy. He is able to walk short distances with the use of a walker and assistants. Sensory exam was not tested, but he does report numbness even up to the umbilicus level. LABORATORY DATA: Pathology is currently pending. CBC revealed a white blood cell count of 5600 with a hemoglobin of 12.3, hematocrit of 35.8, and platelet count of 248,000. Chemistry group showed normal electrolytes. Creatinine is 0.84 with a GFR greater than 90. Liver function tests were normal. RADIOLOGIC DATA: Outside CT scan of the chest and upper abdomen area was personally reviewed. He has a large mass involving the left upper lobe eroding into the chest wall and neural foramina that measures 8.6 x 7.0 x 6.0 cm. There is no evidence of mediastinal adenopathy. He has a 4 cm left supraclavicular lymph node. MRI of the thoracic spine was also personally reviewed. Again, he had a portion of this mass extending through the neural foramina into the spinal canal that is compressing the spinal cord. There is significant motion artifact on the MRI. CT scan of the thoracic spine was also reviewed, which shows less detail than the MRI. ASSESSMENT: Mr. Zhou is a 55-year-old gentleman with at least a clinical stage IIIC, T4 N3 M0 lesion that is likely a left upper lobe lung cancer. Pathology is currently pending. He underwent emergency decompressive surgery yesterday because of spinal cord compression from local extension of the mass. PLAN: I had a long discussion with Mr. Zhou and his regarding his diagnosis, prognosis, prognostic factors, and treatment options. We discussed significance of his staging studies. He needs to be completely staged. He could potentially have curative disease, although cure in this situation may be less likely. Nevertheless, if he does not have overt distant metastasis, then he needs to be treated aggressively with possible curative intent. Some of this will be guided by pathology. I do think we need to complete the staging with an MRI of the brain, which can be done as an inpatient. He will need a PET scan, which will need to be done as an outpatient. We will need to try and expedite his treatment because we do not want him to redevelop spinal cord compression, but I think it is unlikely for him to redevelop spinal cord compression with the good decompressive surgery that he has had over the next 3 to 4 weeks. His radiation treatment plan is potentially be very complex and will require some work and time to do this accurately. If he has overt distant metastatic disease, then that would change his treatment options. This is why staging is so important in addition to the pathology. I explained to the patient and his that we do not yet have the pathology with complete staging studies. I did talk with him in generality. I explained that he is likely going to require radiation therapy. The logistics of a potential course of radiation as well as the benefits and risks were discussed. Simulation and daily treatment procedure were discussed. Side effects would include, but not be limited to skin reaction, fatigue, lower blood counts, difficulty or pain with swallowing, weight loss, possible radiation pneumonitis, and possible damage to the spinal cord, and possible brachial plexopathy. Time was taken to answer all of his questions regarding his current situation and treatment options. Again, more specific recommendations will be made once we have more information including the pathology and completed his staging. I will continue to monitor his course with you while in the hospital and we will see him again as an outpatient. We will try to expedite his treatment as quickly as clinically is feasible and in a safe manner. Thank you for this interesting consultation. Job ID: [id number]
--- NOTE | 2020-07-10 16:51 | MRI ---
MRI BRAIN WITH AND WITHOUT CONTRAST: Date: 07/10/2020 INDICATION: Newly diagnosed lung cancer. Assess for brain metastasis. FINDINGS: Ventricles have normal size and position. No restricted diffusion. No significant white matter abnorm ality. No evidence of edema. No abnormal enhancement. No evidence of mass or metastatic lesion. The sella turcica is mildly promin ent and the pituitary is flattened against the floor of the sella. The findings indicate an empty umair la syndrome. There are small mucus retention cysts seen in the floor of both maxillary sinuses, each measuring nessa roximately 1.5 cm. No significant white matter abnormality. IMPRESSION: 1. Empty sella. 2. No acute process. No evidence of metastatic lesion. POS: AGW
[2020-07-10] MEDS: Sodium Chloride 0.9% 1,000 ML IV SCH ×2 (19:37→19:58)
--- NOTE | 2020-07-10 22:39 | CON ---
DATE OF CONSULTATION: REASON FOR CONSULT: Lung cancer. HISTORY OF PRESENT ILLNESS: The patient is a 55-year-old gentleman who presented to [facility] this weekend with complaints of chest pain. He underwent a CT scan of the chest, which showed an 8.6 x 7 x 6 cm left upper lobe Pancoast tumor of the lung. It was eroding posteriorly into the chest wall with possible extension into the T3-T4 and T4-T5 neural foramina. He had a 4 cm left supraclavicular lymph node. He is transferred to this facility and began having difficulty with his legs. He underwent a thoracic MRI which showed extension of the tumor into the spinal canal. The intraspinal epidural mass was producing severe compression and displacement of the thoracic cord at the T4 level. He underwent a decompressive laminectomy of T3 through T5 yesterday. There was microsurgical resection of the intraspinal epidural lesion. On Wednesday, he had undergone a CT-guided biopsy of the lung mass. Pathology of both biopsies are still currently pending. Today, sitting in the chair, he does have some issues with his strength in his legs, but denies any other complaints. He has a remote history of smoking, quit over 30 years ago. He denies any chest pain, hemoptysis, shortness of breath at this time. PAST MEDICAL HISTORY: DVT in 2007. PAST SURGICAL HISTORY: 1. Cholecystectomy. 2. Anal fistula surgery. 3. Deviated septum repair. ALLERGIES: TO DEMEROL. CURRENT MEDICATIONS: 1. Dexamethasone. 2. Maalox. 3. [place]. 4. Levaquin. 5. Protonix. FAMILY HISTORY: Father had colon cancer at the age of 81. SOCIAL HISTORY: Smoked 30 years ago. Occasional alcohol. Lives with his . REVIEW OF SYSTEMS: 12-point review of systems is negative except for noted in HPI. PHYSICAL EXAMINATION: VITAL SIGNS: Temperature is 98.4, pulse is 82, respiratory rate 18, BP is 128/68. He is 98% on room air. GENERAL: A well-developed, well-nourished male, in no acute distress. HEENT: Normocephalic, atraumatic. Pupils are equal and reactive to light. NECK: Supple. CARDIOVASCULAR: Regular rate and rhythm. LUNGS: Clear. ABDOMEN: Soft and nontender. Bowel sounds are positive. EXTREMITIES: No clubbing or cyanosis. SKIN: No rash. NEUROLOGICAL: He has weakness in his lower extremities. PERTINENT LABORATORY DATA AND X-RAYS: Current WBCs are 5.6, hemoglobin 12.3, hematocrit 35.8, platelet count is 248,000. He has 65% neutrophils, 22% lymphocytes. PT 13.9, INR is 1, PTT is 31.5. Sodium 136, potassium 3.8, chloride 105, CO2 is 22, BUN is 12, creatinine 0.84, calcium 8.2, bilirubin 0.5, AST is 11, ALT is 14, alkaline phosphatase is 44. Serum total protein 6.7, albumin 3.5, globulin 3. RADIOLOGY DATA: Per HPI. ASSESSMENT: Left upper lobe lung cancer, path is currently pending. DISCUSSION: The patient appears to not have any distant metastatic disease. However, he needs to have an MRI and possibly a PET scan in the outpatient setting. He is recovering nicely from his decompressive laminectomy. We briefly discussed chemoimmunotherapy as we must wait until pathology is back or Radiation Oncology has seen him. Case has been discussed with Dr. Martinez. Further recommendations to follow. Thank you for the consult. Job ID: [id number]
--- NOTE | 2020-07-11 07:16 | PRG ---
DATE OF SERVICE: I saw Davin Zhou in the [facility] this morning. Yesterday, our colleagues in Radiation Oncology spoke with the pathologist. 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 Yesterday, Mr. Zhou stood with physical therapy, used a walker. He got around the room, but he did not go in the hallways. He says his legs feel better each day as time passes since his decompression. Maximum temperature yesterday recorded is 99.0 degrees Fahrenheit. Blood pressures have been in the 100 to 130s. Neurological examination has improved since surgery. There is no upper motor neuron weakness that I can appreciate. Pathology final report is still pending. Likely, this will be a lymphoma. Mr. Zhou will be shannon if this is a lymphoma. These typically respond well to treatment. With regard to his neurological function and independence, once he is able to perform his activities of daily living independently, he can go home. Followup arrangements will be made in our office in 2 weeks. We will check the incision. We are likely to leave the sutures in for a protracted time given the fact that he can start his tumor treatment and this may delay full healing of the wound. It is also in a location that is difficult to keep it closed, so vertical mattress sutures can be left for 3 to 4 weeks depending on how fast the skin is growing over them. He will benefit from outpatient therapy. (15 min) Job ID: [id number] MTDD
--- NOTE | 2020-07-11 07:52 | PDOC.MOPN ---
Interval History: he is feeling a little better, some pain at incision site. up in chair, moving legs but still not walking much. no f/c, no NS - Vital Signs Vital Signs: Vital Signs (12 hours) Temp Pulse Resp BP BP Pulse Ox 07/11/20 04:00 97.8 F 68 24 H 106/58 L 98 07/11/20 00:00 98.4 F 75 24 H 125/58 L 92 L 07/10/20 20:00 99 Weight Weight 300 lb - Physical Exam General: Alert HEENT: Atraumatic, Other (L SC LN noted) Lungs: Clear to auscultation Cardiovascular: Regular rate Abdomen: Normal bowel sounds, Other (obese) Extremities: No clubbing Neurological: Normal speech Psych/Mental Status: Mental status NL - Labs Result Diagrams: 07/07/20 04:18 07/07/20 04:18 A/P - Problem (1) Lymphoma involving lung Current Visit: Yes Code(s): C85.99 - NON-HODGKIN LYMPHOMA, UNSP, EXTRANODAL AND SOLID ORGAN SITES Status: Acute (2) Chest pain Current Visit: Yes Code(s): R07.9 - CHEST PAIN, UNSPECIFIED Status: Acute (3) Mass of left lung Current Visit: Yes Code(s): R91.8 - OTHER NONSPECIFIC ABNORMAL FINDING OF LUNG FIELD Status: Acute (4) Obesity Current Visit: Yes Code(s): E66.9 - OBESITY, UNSPECIFIED Status: Chronic Qualifiers: Obesity classification: adult class 3 (BMI >= 40) Body mass index: BMI 40.0-44.9 - Plan Plan: 1. echo 2. port 3. PET as outpt 4. BM biopsy 5. once ambulatory hope to d/c and start treatment EFRAIN as outpt 6. f/u results of final path
[2020-07-11] MEDS: Dexamethasone 4 mg/ml Vial SLOW IVP SCH ×2 (08:51→19:48)
[2020-07-11] MEDS: HYDROcodone/Acetaminophen 5/325 mg Tablet PO PRN (08:56)
[2020-07-11 10:28] LABS: #Lymphocytes 1.6 thou/uL (1.20-3.40); #Neutrophils 5.7 thou/uL (1.40-6.50); %Basophils 0.3 % (0.0-1.0); %Eosinophils 0.5 % (0.0-10.0); %Lymphocytes 19.2 % (21.0-51.0); Hemoglobin 13.4 g/dL (14.0-18.0); Mean Corpuscular HGB CONC 33.4 g/dL (32.0-36.0); Mean Corpuscular Hemoglobin 31.4 pg (27.0-31.0); Mean Corpuscular Volume 94.1 fL (78.0-98.0); Mean Platelet Volume 7.6 fL (7.4-10.4); Platelet Count 284 thou/uL (130-400); Red Blood Cell (RBC) Count 4.28 mill/uL (4.70-6.10); White Blood Cell (WBC) Count 8.4 thou/uL (4.8-10.8)
[2020-07-11 10:41] LABS: Anion Gap 14 mmol/L (10-20); BUN (Urea Nitrogen) 19 mg/dL (8.4-25.7); Calc. Creatinine Clearance 189 mL/min (70-130); Calcium 8.8 mg/dL (7.8-10.44); Carbon Dioxide 23 mmol/L (22-29); Chloride 105 mmol/L (98-107); Estimated GFR-MDRD Greater than 90; Glucose 79 mg/dL (70-105); Sodium 138 mmol/L (136-145)
[2020-07-11] MEDS ORDERED: Sodium Bicarbonate 2.5 MEQ/5 ML VIAL ONE (10:49)
--- NOTE | 2020-07-11 11:10 | PDOC.HOSPP ---
- Subjective Encounter Date: 07/11/20 Encounter Time: 11:00 Subjective: feels better, no new complaints still has left leg parasthesias and some difficulty mobilizing - Objective Vital Signs & Weight: Vital Signs (12 hours) Temp Pulse Resp BP BP BP Pulse Ox 07/11/20 08:00 100 07/11/20 07:58 98.5 F 64 20 136/62 100 07/11/20 04:00 97.8 F 68 24 H 106/58 L 98 07/11/20 00:00 98.4 F 75 24 H 125/58 L 92 L Weight Weight 300 lb I&O: 07/10/20 07/11/20 07/12/20 06:59 06:59 06:59 Intake Total 2400 4620 Output Total 4750 4230 Balance -2350 390 Result Diagrams: 07/11/20 09:48 07/11/20 09:48 Hospitalist ROS - Medication Medications: Active Medications Generic Name Dose Route Start Last Admin Trade Name Freq PRN Reason Stop Dose Admin Hydrocodone Bitart/Acetaminophen 1 tab 07/06/20 00:42 07/11/20 08:56 Hydrocodone/Acetaminophen 5/325 Mg Tablet PO 1 tab Q4H PRN Administration Moderate Pain (4-6) Albuterol/Ipratropium 3 ml 07/06/20 01:00 07/11/20 07:34 Ipratropium/Albuterol Sulfate 3 Ml Neb NEB Not Given [id number]-US PRAVIN Dexamethasone 4 mg 07/09/20 09:00 07/11/20 08:51 Dexamethasone 4 Mg/Ml Vial SLOW IVP 4 mg BID PRAVIN Administration Sodium Chloride 1,000 mls @ 50 mls/hr 07/06/20 00:45 07/10/20 19:58 Normal Saline 0.9% IV 1,000 mls .Q20H PRAVIN Administration Morphine Sulfate 2 mg 07/06/20 00:42 07/09/20 20:57 Morphine 2 Mg/Ml Vial SLOW IVP 2 mg Q4H PRN Administration Severe Pain (7-10) Pantoprazole Sodium 40 mg 07/09/20 09:00 07/11/20 08:50 Pantoprazole 40 Mg Tab PO 40 mg DAILY PRAVIN Administration Tizanidine HCl 4 mg 07/09/20 18:17 07/10/20 19:54 Tizanidine Hcl 4 Mg Tab PO 4 mg Q6H PRN Administration Muscle Spasm - Exam General Appearance: awake alert Eye: PERRL, anicteric sclera ENT: no oropharyngeal lesions, moist mucosa Neck: supple, no JVD Heart: RRR, no murmur Respiratory: no wheezes, no rales Gastrointestinal: soft, non-tender, non-distended, normal bowel sounds Extremities: no cyanosis, no edema Neurological: cranial nerve grossly intact, no new deficit Psychiatric: normal affect, A&O x 3 Hosp A/P (1) Mass of left lung Code(s): R91.8 - OTHER NONSPECIFIC ABNORMAL FINDING OF LUNG FIELD Status: Acute (2) Obesity Code(s): E66.9 - OBESITY, UNSPECIFIED Status: Chronic Qualifiers: Obesity classification: adult class 3 (BMI >= 40) Body mass index: BMI 40.0-44.9 (3) Pleuritic chest pain Code(s): R07.81 - PLEURODYNIA Status: Acute - Plan had CT chest with contrast done at [facility], showed a mass of 8.6 x 7 x 6 cms with erosion of 4th left rib and T3,4 vertebrae is s/p CT guided biopsy by intervention rad 07/08 s/p decompressive laminectomy T3-5 with sacrifice of T4 nr root, 07/09/2020. await histopath report echo shows normal ef and valvular function nebs prn hemo/neurostable onc and rad onc are consulted suspected non Hodgkins lymphoma, await final histopath report Is getting bone marrow biopsy today
--- NOTE | 2020-07-11 15:30 | CT ---
CT GUIDED RIGHT ILIAC BONE MARROW ASPIRATION AND BIOPSY: CLINICAL HISTORY: Lymphoma. PROCEDURE: The procedure including the risks and complications were explained to the patient, and informed conse nt was obtained. The patient was placed on the CT scan table in the prone position. Noncontrasted CT images were obtained through the pelvis. An area was marked overlying the RIGHT taj c bone, and the area was meticulously prepped and draped in usual sterile fashion. The skin and subcutaneous tissues were infiltrated with buffered 1% lidocaine for local anesthesia. After a small skin incision was made, an 11-gauge needle was advanced and positioning was confirmed w ith axial CT images. Approximately 9 milliliters of bone marrow aspirate was obtained. The needle was then further advanced, and a bone marrow biopsy was performed. The needle was removed, and hemost asis was achieved with direct pressure. The patient tolerated the procedure well and without immediate complication. The patient was transported to radiology nurses holding area for further stew toring prior to discharge. IMPRESSION: Technically successful percutaneous bone marrow aspiration and biopsy. Pathology results are pending.
--- NOTE | 2020-07-11 17:41 | PRG ---
DATE OF SERVICE: 07/11/2020 SUBJECTIVE: Mr. Zhou states that he is doing better today. He was able to walk 68 feet with the help of physical therapy. He still has leg numbness, but his strength is good. He voices no other complaints. OBJECTIVE: VITAL SIGNS: Height 5 feet 10 inches and weight 300 pounds. Blood pressure is 115/56, pulse is 71, respirations are 18, temperature 98.9, and O2 saturation is 98%. CONSTITUTIONAL: He is alert and oriented and in no apparent distress. NEUROLOGIC: Motor strength is 5/5 in both lower extremities in all muscle groups tested. Gait was not tested. Sensory exam was not tested. IMAGING STUDIES: MRI of the brain showed no evidence of involvement of the brain. He possibly had empty sella syndrome. LABORATORY DATA: CBC revealed a white blood cell count of 8400 with hemoglobin 13.4, hematocrit of 40.3, and platelet count of 284,000. Pathology from his initial biopsy has been interpreted as lymphoma. Final classification is pending. ASSESSMENT: Mr. Zhou surprisingly does not have lung cancer, but has been diagnosed with lymphoma. He has not been completely staged, but this appears to be a clinical stage IIAE lesion. He will need a PET scan as an outpatient. PLAN: We still need to await the final classification of the lymphoma as well as his bone marrow biopsy and additional staging studies. He will likely need a PET scan as an outpatient. I explained to Mr. Zhou that lymphoma has a much better prognosis than lung cancer. Hopefully, he will have a potentially curable lymphoma. Treatment may consist of chemotherapy followed by radiation depending on the type of lymphoma. If this is a low-grade lymphoma, then we might proceed with radiation therapy first. This final pathology will help determine our treatment course. We will try to present his case at our multimodality cancer conference. Job ID: [id number]
[2020-07-11] MEDS ORDERED: CEFAZOLIN 2 GM in Premix Bag 1 BAG IVPB SCH (18:30)
[2020-07-11] MEDS: Sodium Chloride 0.9% 1,000 ML IV SCH (19:50)
--- NOTE | 2020-07-11 23:54 | CON ---
DATE OF CONSULTATION: HISTORY OF PRESENT ILLNESS: Davin Zhou is a 55-year-old male patient, found to have lymphoma. I have been asked to see him regarding MediPort placement. Dr. Martinez has seen him and Christine Islas has seen him. The patient presented with right-sided chest pain, went to referring facility [facility], had a CAT scan revealing the nodule, admitted to this facility, undergoing biopsy, biospy revealing lymphoma. ALLERGIES: DEMEROL. MEDICATIONS: Outpatient, none. SOCIAL HISTORY: Alcohol, none. Tobacco, none. Former smoker of cessation for several years. PAST SURGICAL HISTORY: Nasal surgery, cholecystectomy, and anal fissure surgery. REVIEW OF SYSTEMS: Noncontributory. PHYSICAL EXAMINATION: VITAL SIGNS: Height 5 feet 10 inches, 300 pounds, 43 BMI. Temperature 98.9, pulse 71, and blood pressure 115/56. HEAD, EARS, EYES, NOSE, AND THROAT: Unremarkable. LUNGS: Clear to auscultation. No wheezing. CARDIAC: Regular rate and rhythm. ABDOMEN: Obese, soft, and nontender. EXTREMITIES: Unremarkable. ASSESSMENT: Lymphoma. PLAN: Placement of a MediPort. He understands risks and benefits, consents. We will plan this tomorrow. COVID is negative from the referring emergency room. Job ID: [id number]
--- NOTE | 2020-07-12 06:49 | PRG ---
DATE OF SERVICE: 07/12/2020 I saw Mr. Zhou this morning. He walked 68 strides yesterday with physical therapy and is making very nice progress. A Port-A-Cath has been scheduled for today. Mr. Zhou will continue his physical therapy as an outpatient. We will check his wound in 2 to 3 weeks. He has Oncology appointments already scheduled. I hope he does quite well from his lymphoma involving the chest wall. Job ID: [id number] MTDD
[2020-07-12] MEDS: Dexamethasone 4 mg/ml Vial SLOW IVP SCH ×2 (08:48→19:31)
[2020-07-12] MEDS ORDERED: PROPOFOL 200 MG/20 ML VIAL ONE (10:16)
[2020-07-12] MEDS ORDERED: Midazolam HCl 2 mg/2 ml Vial ONE (12:43)
[2020-07-12] MEDS ORDERED: Fentanyl 100 MCG/2 ML VIAL ONE ×2 (12:43→13:58)
[2020-07-12] MEDS ORDERED: Bupivacaine HCl 0.5%/Epinephrine 1:200,000/PF 30 ml Vial ONE (12:54)
[2020-07-12] MEDS ORDERED: Lidocaine 2% PF 5 ML VIAL ONE (12:54)
[2020-07-12] MEDS ORDERED: Promethazine HCl 25 MG/ML VIAL IM PRN (13:50)
[2020-07-12] MEDS ORDERED: Ondansetron HCl/PF 4 MG/2 ML Vial IVP PRN (13:50)
[2020-07-12] MEDS ORDERED: Promethazine HCl 25 MG/ML VIAL SLOW IVP PRN (13:50)
--- NOTE | 2020-07-12 14:40 | RAD ---
PORTABLE CHEST: COMPARISON: 07/06/2020 exam. HISTORY: MediPort placement. FINDINGS: Heart size and mediastinum are within normal limits. There is linear scarring in both lung mcginnis. A right-sided MediPort catheter has been placed. The catheter tip overlies the superior vena cava. There are no signs of pneumothorax. IMPRESSION: Post MediPort placement. No signs of pneumothorax. POS: ANUEL
--- NOTE | 2020-07-12 14:57 | PDOC.MOPN ---
Interval History: per nurse, requires assistance to get up and with walking. - Vital Signs Vital Signs: Weight Weight 300 lb - Physical Exam General: Alert, Oriented x3, No acute distress HEENT: Atraumatic, PERRLA, EOMI, Mucous membr. moist/pink Lungs: Clear to auscultation, Normal air movement Cardiovascular: Regular rate, Normal S1, Normal S2, No murmurs, Gallops, Rubs Abdomen: Normal bowel sounds, Soft, No tenderness, No hepatospenomegaly, No masses Neurological: Normal speech Psych/Mental Status: Mental status NL - Labs Result Diagrams: 07/11/20 09:48 07/11/20 09:48 Lab results: Laboratory Results - last 24 hr 07/11/20 11:31: Flow Cytometry Interp Status: lab reviewed by me A/P - Problem (1) Lymphoma involving lung Current Visit: Yes Code(s): C85.99 - NON-HODGKIN LYMPHOMA, UNSP, EXTRANODAL AND SOLID ORGAN SITES Status: Acute - Plan Plan: 1. Patient likely has DLBCL, await fish for final diagnosis 2. continue steroids 3. continue PT, rehab consult placed 4. Hopefully, will get first dose chemo prior to discharge
[2020-07-12] MEDS: Sodium Chloride 0.9% 1,000 ML IV SCH (16:24)
--- NOTE | 2020-07-12 20:30 | OP ---
DATE OF PROCEDURE: 07/12/2020 PREOPERATIVE DIAGNOSIS: Lymphoma. POSTOPERATIVE DIAGNOSIS: Lymphoma. PROCEDURE PERFORMED: Right subclavian vein MediPort, left acces, fluoroscopy used. ANESTHESIA: Intravenous sedation and local 0.25% Marcaine 30 mL mixed with 2% Xylocaine 5 mL. DESCRIPTION OF PROCEDURE: The patient was taken to the operating room where under intravenous sedation, the chest was clipped of hair, prepared with ChloraPrep and draped in routine fashion. Local anesthetic mixture was infiltrated into the skin and subcutaneous tissue about the operative site. Infraclavicular approach used to cannulate the right subclavian vein threading the J-wire, removing the trocar catheter and making a skin incision, creating a subcutaneous pocket, noting good hemostasis. Dilator and Peel-Away sheath placed over the J-wire in superior vena cava and dilator and J-wire removed. Catheter placed through the Peel-Away sheath. Peel-Away sheath removed. Fluoroscopically tip placed in optimal position in superior vena cava and catheter tailored to length, connected to the MediPort, placed in subcutaneous pocket and secured with 2 interrupted sutures of 3-0 Prolene. Subcutaneous tissue was approximated with 3-0 Monocryl, skin with subdermal 4-0 Monocryl, and [place] glue applied. MediPort accessed with a Elder needle, left access and aspirated blood, flushed with heparinized saline solution. Final fluoroscopic images revealed good line placement and port placement. Patient tolerated the procedure well. Job ID: [id number]
[2020-07-13] MEDS: Dexamethasone 4 mg/ml Vial SLOW IVP SCH ×2 (09:54→20:48)
[2020-07-13] MEDS: Sodium Chloride 0.9% 1,000 ML IV SCH (09:55)
--- NOTE | 2020-07-13 11:29 | PDOC.HOSPP ---
- Subjective Encounter Date: 07/13/20 Encounter Time: 10:45 Subjective: had BM this am, no new symptoms or complaints is ambulating, still has left leg weakness with parasthesias - Objective Vital Signs & Weight: Vital Signs (12 hours) Temp Pulse Resp BP Pulse Ox 07/13/20 08:11 98.0 F 66 18 123/67 99 Weight Weight 300 lb I&O: 07/12/20 07/13/20 07/14/20 06:59 06:59 06:59 Intake Total 1570 600 Output Total 3450 2650 Balance -1879 -2049 Result Diagrams: 07/11/20 09:48 07/11/20 09:48 Hospitalist ROS - Medication Medications: Active Medications Generic Name Dose Route Start Last Admin Trade Name Freq PRN Reason Stop Dose Admin Hydrocodone Bitart/Acetaminophen 1 tab 07/06/20 00:42 07/11/20 08:56 Hydrocodone/Acetaminophen 5/325 Mg Tablet PO 1 tab Q4H PRN Administration Moderate Pain (4-6) Dexamethasone 4 mg 07/09/20 09:00 07/13/20 09:54 Dexamethasone 4 Mg/Ml Vial SLOW IVP 4 mg BID PRAVIN Administration Sodium Chloride 1,000 mls @ 50 mls/hr 07/06/20 00:45 07/13/20 09:55 Normal Saline 0.9% IV 1,000 mls .Q20H PRAVIN Administration Morphine Sulfate 2 mg 07/06/20 00:42 07/09/20 20:57 Morphine 2 Mg/Ml Vial SLOW IVP 2 mg Q4H PRN Administration Severe Pain (7-10) Pantoprazole Sodium 40 mg 07/09/20 09:00 07/13/20 09:54 Pantoprazole 40 Mg Tab PO 40 mg DAILY PRAVIN Administration Tizanidine HCl 4 mg 07/09/20 18:17 07/10/20 19:54 Tizanidine Hcl 4 Mg Tab PO 4 mg Q6H PRN Administration Muscle Spasm - Exam General Appearance: awake alert Eye: PERRL, anicteric sclera ENT: no oropharyngeal lesions, moist mucosa Neck: supple, no JVD Heart: RRR, no murmur Respiratory: no wheezes, no rales Gastrointestinal: soft, non-tender, non-distended, normal bowel sounds Extremities: no cyanosis, no edema Neurological: cranial nerve grossly intact, no new deficit Psychiatric: normal affect, A&O x 3 Hosp A/P (1) Large B-cell lymphoma Code(s): C85.10 - UNSPECIFIED B-CELL LYMPHOMA, UNSPECIFIED SITE Status: Acute (2) Obesity Code(s): E66.9 - OBESITY, UNSPECIFIED Status: Chronic Qualifiers: Obesity classification: adult class 3 (BMI >= 40) Body mass index: BMI 40.0-44.9 (3) Pleuritic chest pain Code(s): R07.81 - PLEURODYNIA Status: Resolved - Plan Biopsy from lung and spine are consistent with large B cell lymphoma, bone marrow was -ve. likely will get one round chemo per onc note. had CT chest with contrast done at [facility] ER, showed a mass of 8.6 x 7 x 6 cms with erosion of 4th left rib and T3,4 vertebrae is s/p CT guided biopsy by intervention rad 07/08 s/p decompressive laminectomy T3-5 with sacrifice of T4 nr root, 07/09/2020. echo shows normal ef and valvular function nebs prn hemo/neurostable rehab placement is pending, dc plan per onc advice to mobilize as tolerated
[2020-07-13] MEDS: HYDROcodone/Acetaminophen 5/325 mg Tablet PO PRN (16:16)
[2020-07-14] MEDS: Sodium Chloride 0.9% 1,000 ML IV SCH (06:36)
[2020-07-14] MEDS: Dexamethasone 4 mg/ml Vial SLOW IVP SCH ×2 (08:39→20:22)
--- NOTE | 2020-07-14 11:39 | PDOC.HOSPP ---
- Subjective Encounter Date: 07/14/20 Encounter Time: 11:15 Subjective: sitting in chair, feels good is able to walk better now, still has parasthesias and weakness on left LE - Objective Vital Signs & Weight: Vital Signs (12 hours) Temp Pulse Resp BP Pulse Ox 07/14/20 07:30 97 07/14/20 07:27 98.1 F 64 20 116/65 97 Weight Weight 300 lb I&O: 07/13/20 07/14/20 07/15/20 06:59 06:59 06:59 Intake Total 600 3100 Output Total 2650 2350 Balance -2049 750 Result Diagrams: 07/11/20 09:48 07/11/20 09:48 Hospitalist ROS - Medication Medications: Active Medications Generic Name Dose Route Start Last Admin Trade Name Freq PRN Reason Stop Dose Admin Hydrocodone Bitart/Acetaminophen 1 tab 07/06/20 00:42 07/13/20 16:16 Hydrocodone/Acetaminophen 5/325 Mg Tablet PO 1 tab Q4H PRN Administration Moderate Pain (4-6) Dexamethasone 4 mg 07/09/20 09:00 07/14/20 08:39 Dexamethasone 4 Mg/Ml Vial SLOW IVP 4 mg BID PRAVIN Administration Sodium Chloride 1,000 mls @ 50 mls/hr 07/06/20 00:45 07/14/20 06:36 Normal Saline 0.9% IV 1,000 mls .Q20H PRAVIN Administration Morphine Sulfate 2 mg 07/06/20 00:42 07/09/20 20:57 Morphine 2 Mg/Ml Vial SLOW IVP 2 mg Q4H PRN Administration Severe Pain (7-10) Pantoprazole Sodium 40 mg 07/09/20 09:00 07/14/20 08:39 Pantoprazole 40 Mg Tab PO 40 mg DAILY PRAVIN Administration Tizanidine HCl 4 mg 07/09/20 18:17 07/10/20 19:54 Tizanidine Hcl 4 Mg Tab PO 4 mg Q6H PRN Administration Muscle Spasm - Exam General Appearance: awake alert Eye: PERRL, anicteric sclera ENT: no oropharyngeal lesions, moist mucosa Neck: supple, no JVD Heart: RRR, no murmur Respiratory: no wheezes, no rales Gastrointestinal: soft, non-tender, non-distended, normal bowel sounds Extremities: no cyanosis, no edema Neurological: cranial nerve grossly intact, no focal deficits Psychiatric: normal affect, A&O x 3 Hosp A/P (1) Large B-cell lymphoma Code(s): C85.10 - UNSPECIFIED B-CELL LYMPHOMA, UNSPECIFIED SITE Status: Acute (2) Obesity Code(s): E66.9 - OBESITY, UNSPECIFIED Status: Chronic Qualifiers: Obesity classification: adult class 3 (BMI >= 40) Body mass index: BMI 40.0-44.9 (3) Pleuritic chest pain Code(s): R07.81 - PLEURODYNIA Status: Resolved - Plan Biopsy from lung and spine are consistent with large B cell lymphoma, bone marrow was -ve. likely will get one round chemo per onc note. had CT chest with contrast done at [facility] ER, showed a mass of 8.6 x 7 x 6 cms with erosion of 4th left rib and T3,4 vertebrae on arrival. is s/p CT guided biopsy by intervention rad 07/08 s/p decompressive laminectomy T3-5 with sacrifice of T4 nr root, 07/09/2020. echo shows normal ef and valvular function nebs prn hemo/neurostable rehab placement is pending, dc plan per onc advice to mobilize as tolerated
[2020-07-14] MEDS: HYDROcodone/Acetaminophen 5/325 mg Tablet PO PRN (22:08)
--- NOTE | 2020-07-15 08:20 | PDOC.MOPN ---
Interval History: getting stronger and is supposed to go to rehab - Vital Signs Vital Signs: Vital Signs (12 hours) Temp Pulse Resp BP Pulse Ox 07/15/20 07:31 100 07/15/20 07:24 97.6 F 61 18 132/72 100 Weight Weight 300 lb - Physical Exam General: Alert, No acute distress HEENT: Atraumatic Lungs: Clear to auscultation Cardiovascular: Regular rate Abdomen: Normal bowel sounds Extremities: No edema Skin: No rashes Neurological: Normal gait - Labs Result Diagrams: 07/11/20 09:48 07/11/20 09:48 - Pathology Pathology: biopsy reveals DLBCL with high ki-67, FISH pending for double and triple hit A/P - Problem (1) Lymphoma involving lung Current Visit: Yes Code(s): C85.99 - NON-HODGKIN LYMPHOMA, UNSP, EXTRANODAL A ND SOLID ORGAN SITES Status: Acute (2) Chest pain Current Visit: Yes Code(s): R07.9 - CHEST PAIN, UNSPECIFIED Status: Acute (3) Obesity Current Visit: Yes Code(s): E66.9 - OBESITY, UNSPECIFIED Status: Chronic Qualifiers: Obesity classification: adult class 3 (BMI >= 40) Body mass index: BMI 40.0-44.9 - Plan Plan: 1. chemo with CHOP-R, likely give before transfer to rehab 2. PT/OT 3. consider IT chemo with MTX 4. neulasta support 5. f/u in office when out of rehab
[2020-07-15] MEDS: Dexamethasone 4 mg/ml Vial SLOW IVP SCH ×2 (08:56→21:27)
--- NOTE | 2020-07-15 11:35 | CT ---
CT GUIDED RIGHT ILIAC BONE MARROW ASPIRATION AND BIOPSY: CLINICAL HISTORY: Lymphoma. PROCEDURE: The procedure including the risks and complications were explained to the patient, and informed conse nt was obtained. The patient was placed on the CT scan table in the prone position. Noncontrasted CT images were obtained through the pelvis. An area was marked overlying the RIGHT taj c bone, and the area was meticulously prepped and draped in usual sterile fashion. The skin and subcutaneous tissues were infiltrated with buffered 1% lidocaine for local anesthesia. After a small skin incision was made, an 11-gauge needle was advanced and positioning was confirmed w ith axial CT images. Approximately 9 milliliters of bone marrow aspirate was obtained. The needle was then further advanced, and a bone marrow biopsy was performed. The needle was removed, and hemost asis was achieved with direct pressure. The patient tolerated the procedure well and without immediate complication. The patient was transported to radiology nurses holding area for further stew toring prior to discharge. IMPRESSION: Technically successful percutaneous bone marrow aspiration and biopsy. Pathology results are pending. Transcribed Date/Time: 07/15/2020 11:34 AM
--- NOTE | 2020-07-15 12:16 | PDOC.HOSPP ---
- Subjective Encounter Date: 07/15/20 Subjective: My first time seeing the patient today. Patient presented initially with some chest pain. CTA of the chest revealed a mass in the left upper lobe with invasion of the chest wall and T3 and T4 area the lesion was 8.6 x 7 x 6 cm. Biopsy revealed a B-cell lymphoma. He underwent surgical resection on 07 09 to remove the tumor around the spine area. He has mattress sutures in place. He has been seen by oncology and the plan is to get CT chest abdomen and pelvis today along with a bone scan. The hope is to initiate chemotherapy prior to discharge. He has also been seen in consultation by radiation oncology. The patient certainly would benefit from some radiation therapy, however, he will likely need a PET scan prior to initiation. He did have a negative MRI of the brain and negative bone marrow biopsy. He currently remains on Decadron. He continues to have some numbness and weakness in his legs. He is getting up with physical therapy and was able to ambulate in the hallway somewhat today. He is fairly optimistic and eager to continue with treatment. - Objective Vital Signs & Weight: Vital Signs (12 hours) Temp Pulse Resp BP Pulse Ox 07/15/20 07:31 100 07/15/20 07:24 97.6 F 61 18 132/72 100 Weight Weight 300 lb I&O: 07/14/20 07/15/20 07/16/20 06:59 06:59 06:59 Intake Total 3100 2310 Output Total 2350 2975 1375 Balance 164 -090 -2048 Result Diagrams: 07/11/20 09:48 07/11/20 09:48 Hospitalist ROS - Medication Medications: Active Medications Generic Name Dose Route Start Last Admin Trade Name Freq PRN Reason Stop Dose Admin Hydrocodone Bitart/Acetaminophen 1 tab 07/06/20 00:42 07/14/20 22:08 Hydrocodone/Acetaminophen 5/325 Mg Tablet PO 1 tab Q4H PRN Administration Moderate Pain (4-6) Dexamethasone 4 mg 07/09/20 09:00 07/15/20 08:56 Dexamethasone 4 Mg/Ml Vial SLOW IVP 4 mg BID PRAVIN Administration Morphine Sulfate 2 mg 07/06/20 00:42 07/09/20 20:57 Morphine 2 Mg/Ml Vial SLOW IVP 2 mg Q4H PRN Administration Severe Pain (7-10) Pantoprazole Sodium 40 mg 07/09/20 09:00 07/15/20 08:36 Pantoprazole 40 Mg Tab PO 40 mg DAILY PRAVIN Administration Tizanidine HCl 4 mg 07/09/20 18:17 07/10/20 19:54 Tizanidine Hcl 4 Mg Tab PO 4 mg Q6H PRN Administration Muscle Spasm - Exam General Appearance: NAD, awake alert Heart: RRR, no murmur, no gallops, no rubs, normal peripheral pulses Respiratory: CTAB, no wheezes, no rales, no ronchi, normal chest expansion, no tachypnea, normal percussion Gastrointestinal: soft, non-tender, non-distended, normal bowel sounds, no palpable masses, no hepatomegaly, no splenomegaly, no bruit Extremities: no cyanosis, no clubbing, no edema Skin: normal turgor Neurological - other findings: Decreased sensation/weakness BLEs. Able to ambulate with assist Musculoskeletal: normal tone Musculoskeletal - other findings: Back wound looks good. Mattress sutures in place. Psychiatric: normal affect, normal behavior, A&O x 3 Hosp A/P (1) Lymphoma involving lung Code(s): C85.99 - NON-HODGKIN LYMPHOMA, UNSP, EXTRANODAL AND SOLID ORGAN SITES Status: Acute (2) Large B-cell lymphoma Code(s): C85.10 - UNSPECIFIED B-CELL LYMPHOMA, UNSPECIFIED SITE Status: Acute (3) Chest pain Code(s): R07.9 - CHEST PAIN, UNSPECIFIED Status: Acute (4) Obesity Code(s): E66.9 - OBESITY, UNSPECIFIED Status: Chronic Qualifiers: Obesity classification: adult class 3 (BMI >= 40) Body mass index: BMI 40.0-44.9 - Plan Currently the plan is for the patient to go to rehab briefly. Discussed with case management. Records were sent to his insurance company. Sounds like the plan is to likely get him there on Wednesday. In the meantime we will continue with physical therapy. Continue with Decadron and pain management. Has CT chest abdomen and pelvis and a nuclear medicine bone scan pending today. Still has a few final reports on his pathology pending. Will likely initiate chemotherapy prior to discharge to rehab. He will need radiation therapy as soon as he is able to. Anticipate rehab for 1 to 2 weeks only.
--- NOTE | 2020-07-15 13:34 | CT ---
CT CHEST AND ABDOMEN AND PELVIS WITH CONTRAST: INDICATION: Lymphoma staging. COMPARISON: Comparison is made to CT thoracic spine 07/09/2020 and MRI thoracic spine 07/07/2020. FINDINGS: CT CHEST: The pleural-based mass involving the posterior left chest at the T3 and T4 level is again seen. This mass involves the left 4th rib with an expansile destructive process. This mass involves the T4 fred tebra on the left. The patient has undergone postoperative changes with posterior laminectomy change s at T3, T4, and T5 since the prior CT of 07/09/2020. Intradural extension of this mass was described on prior MRI and the intraspinal portions of this mass are not adequately evaluated on this CT. The lung mcginnis otherwise appear clear. There is a calcified granuloma in the right lower lobe. No pul monary mass. No evidence of mediastinal adenopathy. The pleural-based mass is measured at approximately 8 mm width in the axial plane by approximately 5. 4 cm AP dimension in the axial plane. IMPRESSION: The pleural-based mass in the left posterior chest with left 4th rib involvement and left T4 vertebra involvement is again seen and not significantly changed from the CT of 07/09/2020. CT ABDOMEN AND PELVIS: There are 2 or 3 tiny low-density foci in the liver which are subcentimeter and not well characterize d but probably represent tiny cystic lesions. The liver, spleen, and pancreas are otherwise unremark able. Post cholecystectomy change. Stomach and duodenum unremarkable. Adrenal glands normal. Kidneys are unremarkable. There is a 1.2 cm cyst along the superior lateral left renal cortex and th ere is another small low-density foci in the superior left renal cortex which is measured in the 1 cm range. These are most consistent with small cystic lesions. No solid renal mass. There is a sugge stion of left parapelvic cyst. Lack of contrast in the collecting structures inhibits adequate eval uation of these parapelvic cysts. The urinary bladder is mildly distended and unremarkable. There is mild prostatic hypertrophy which does impinge on the floor of the bladder. Aorta normal caliber. No intraabdominal adenopathy identi fied. Small bowel loops appear normal. The colon is unremarkable. Osseous structures involving the lumbar spine and pelvis appear unremarkable. IMPRESSION: Unremarkable CT abdomen and pelvis. POS: OFF
[2020-07-15] MEDS ORDERED: Iopamidol 370 76% 100 ML VIAL ONE (13:42)
--- NOTE | 2020-07-15 14:06 | NM ---
WHOLE BODY BONE SCAN: HISTORY: Lymphoma RADIOPHARMACEUTICAL: 30 mCi technetium 99m-MDP injected intravenously COMPARISON: None CORRELATION: 07/15/2020 FINDINGS: Increased uptake in the shoulders and acromioclavicular joints is consistent with degenerative change s. Tiny focus of increased uptake in the left greater trochanter is likely due to enthesopathy. There is increased uptake in the left posterior fourth rib likely due to the destructive changes in t he CT scan. No other abnormal areas of tracer localization are seen in the skeleton. Tracer excretion through the kidneys is within normal limits. IMPRESSION: Lymphomatous changes involving the left fourth rib.
[2020-07-16 05:59] LABS: #Lymphocytes 1.2 thou/uL (1.20-3.40); #Monocytes 0.6 thou/uL (0.11-0.59); #Neutrophils 5.7 thou/uL (1.40-6.50); %Basophils 0.2 % (0.0-1.0); %Eosinophils 0.4 % (0.0-10.0); %Lymphocytes 16.1 % (21.0-51.0); %Monocytes 7.5 % (0.0-10.0); %Neutrophils 75.8 % (42.0-75.0); Hemoglobin 12.1 g/dL (14.0-18.0); Mean Corpuscular HGB CONC 34.7 g/dL (32.0-36.0); Mean Corpuscular Hemoglobin 31.8 pg (27.0-31.0); Mean Corpuscular Volume 91.8 fL (78.0-98.0); Mean Platelet Volume 7.3 fL (7.4-10.4); Platelet Count 336 thou/uL (130-400); RBC Distribution Width 11.7 % (11.5-14.5); Red Blood Cell (RBC) Count 3.79 mill/uL (4.70-6.10); White Blood Cell (WBC) Count 7.5 thou/uL (4.8-10.8)
[2020-07-16 06:38] LABS: ALT (SGPT) 29 U/L (8-55); AST (SGOT) 16 U/L (5-34); Albumin 3.4 g/dL (3.5-5.0); Alkaline Phosphatase 50 U/L (40-110); Anion Gap 12 mmol/L (10-20); BUN (Urea Nitrogen) 15 mg/dL (8.4-25.7); Bilirubin, Total 0.5 mg/dL (0.2-1.2); Calc. Creatinine Clearance 220 mL/min (70-130); Calcium 8.5 mg/dL (7.8-10.44); Carbon Dioxide 25 mmol/L (22-29); Chloride 103 mmol/L (98-107); Estimated GFR-MDRD Greater than 90; Globulin 3.2 g/dL (2.4-3.5); Glucose 109 mg/dL (70-105); Protein, Total 6.6 g/dL (6.0-8.3); Sodium 136 mmol/L (136-145); Uric Acid 5.2 mg/dL (3.5-7.2)
[2020-07-16] MEDS ORDERED: Dexamethasone Sod Phosphate 20 MG in Sodium Chloride 0.9% 50 ML IVPB SCH (07:30)
[2020-07-16] MEDS ORDERED: Palonosetron HCl 0.25 MG in Sodium Chloride 0.9% 50 ML IVPB SCH (07:30)
[2020-07-16] MEDS ORDERED: diphenhydrAMINE 50 MG in Sodium Chloride 0.9% 50 ML IVPB PRN (07:31)
[2020-07-16] MEDS ORDERED: Acetaminophen 500 MG TAB PO PRN (07:31)
[2020-07-16] MEDS ORDERED: RITUXIMAB ABBS IVPB SCH ×2 (07:45→11:15)
[2020-07-16] MEDS ORDERED: SODIUM CHLORIDE 0.9% IVPB SCH ×5 (07:45→11:45)
[2020-07-16] MEDS ORDERED: CYCLOPHOSPHAMIDE IVPB SCH (07:45)
[2020-07-16] MEDS ORDERED: DOXORUBICIN IVPB SCH ×2 (07:45→11:45)
[2020-07-16] MEDS ORDERED: VINCRISTINE SULFATE IVPB SCH (07:45)
[2020-07-16] MEDS ORDERED: predniSONE 50 MG TAB PO SCH (08:00)
[2020-07-16] MEDS: Dexamethasone 4 mg/ml Vial SLOW IVP SCH ×2 (08:39→20:04)
[2020-07-16 08:50] VITALS: BMI 41.7
[2020-07-16] MEDS ORDERED: vinCRIStine Sulfate 2 MG in Sodium Chloride 0.9% 50 ML IVPB SCH (12:00)
--- NOTE | 2020-07-16 15:03 | PDOC.MOPN ---
Interval History: working with PT, agrees to start chemo today - Vital Signs Vital Signs: Vital Signs (12 hours) Temp Pulse Resp BP Pulse Ox 07/16/20 14:58 52 L 20 107/56 L 07/16/20 14:27 53 L 18 97/56 L 07/16/20 14:04 55 L 18 99/58 L 07/16/20 13:29 97.7 F 58 L 18 116/59 L 99 07/16/20 07:34 97.7 F 60 18 119/70 99 07/16/20 07:33 99 Weight Admit Weight 302 lb 6.4 oz Weight 291 lb - Physical Exam General: Alert, Oriented x3, No acute distress HEENT: Atraumatic, PERRLA, EOMI, Mucous membr. moist/pink Lungs: Clear to auscultation, Normal air movement Cardiovascular: Regular rate, Normal S1, Normal S2, No murmurs, Gallops, Rubs Abdomen: Normal bowel sounds, Soft, No tenderness, No hepatospenomegaly, No masses Extremities: Other (BLE weakness) Neurological: Normal speech Psych/Mental Status: Mental status NL - Labs Result Diagrams: 07/16/20 05:45 07/16/20 05:45 Lab results: Laboratory Results - last 24 hr 07/16/20 05:45: WBC 7.5, RBC 3.79 L, Hgb 12.1 L, Hct 34.8 L, MCV 91.8, MCH 31.8 H, MCHC 34.7, RDW 11.7, Plt Count 336, MPV 7.3 L, Neutrophils % 75.8 H, Lymphocytes % 16.1 L, Monocytes % 7.5, Eosinophils % 0.4, Basophils % 0.2, Neutrophils # 5.7, Lymphocytes # 1.2, Monocytes # 0.6 H, Eosinophils # 0.0, Basophils # 0.0 07/16/20 05:45: Lactate Dehydrogenase 208 07/16/20 05:45: Sodium 136, Potassium 4.0, Chloride 103, Carbon Dioxide 25, Anion Gap 12, BUN 15, Creatinine 0.73, Estimated GFR (MDRD) Greater than 90, Glucose 109 H, Uric Acid 5.2, Calcium 8.5, Total Bilirubin 0.5, AST 16, ALT 29, Alkaline Phosphatase 50, Serum Total Protein 6.6, Albumin 3.4 L, Globulin 3.2, Albumin/Globulin Ratio 1.1 L Status: lab reviewed by me A/P - Problem (1) Lymphoma involving lung Current Visit: Yes Code(s): C85.99 - NON-HODGKIN LYMPHOMA, UNSP, EXTRANODAL AND SOLID ORGAN SITES Status: Acute - Plan Plan: 1. C1D1 CHOP-R, needs fulphila before transfer to rehab tomorrow 2. PT/OT 3. consider IT chemo with MTX, cycle 2 4. f/u in office when out of rehab
--- NOTE | 2020-07-16 15:03 | PDOC.HOSPP ---
- Subjective Encounter Date: 07/16/20 Subjective: Patient continues to do well. He has no significant pain in his back. Eating well. Says he is getting more feeling back in his legs and is right on the verge of being able to stand on his own. - Objective Vital Signs & Weight: Vital Signs (12 hours) Temp Pulse Resp BP Pulse Ox 07/16/20 14:58 52 L 20 107/56 L 07/16/20 14:27 53 L 18 97/56 L 07/16/20 14:04 55 L 18 99/58 L 07/16/20 13:29 97.7 F 58 L 18 116/59 L 99 07/16/20 07:34 97.7 F 60 18 119/70 99 07/16/20 07:33 99 Weight Admit Weight 302 lb 6.4 oz Weight 291 lb I&O: 07/15/20 07/16/20 07/17/20 06:59 06:59 06:59 Intake Total 2310 5520 Output Total 2561 0521 3967 Balance 665 -3680 -1300 Result Diagrams: 07/16/20 05:45 07/16/20 05:45 Hospitalist ROS - Medication Medications: Active Medications Generic Name Dose Route Start Last Admin Trade Name Freq PRN Reason Stop Dose Admin Acetaminophen 1,000 mg 07/16/20 07:31 07/16/20 12:03 Acetaminophen 500 Mg Tab PO 1,000 mg WILLCALL PRN Administration Headache/Fever or Pain Dexamethasone 4 mg 07/09/20 09:00 07/16/20 08:39 Dexamethasone 4 Mg/Ml Vial SLOW IVP 4 mg BID PRAVIN Administration Diphenhydramine HCl 50 mg/ 51 mls @ 153 mls/hr 07/16/20 07:31 07/16/20 12:03 Sodium Chloride IVPB 51 mls WILLCALL PRN Administration Itching & Insomnia Rituximab-abbs 500 mg/ 580 mls @ 0 mls/hr 07/16/20 11:15 07/16/20 13:29 Rituximab-abbs 300 mg/ Sodium IVPB 580 mls Chloride WILLCALL PRAVIN Administration As Directed Pantoprazole Sodium 40 mg 07/09/20 09:00 07/16/20 08:39 Pantoprazole 40 Mg Tab PO 40 mg DAILY PRAVIN Administration Tizanidine HCl 4 mg 07/09/20 18:17 07/10/20 19:54 Tizanidine Hcl 4 Mg Tab PO 4 mg Q6H PRN Administration Muscle Spasm - Exam General Appearance: NAD, awake alert General - other findings: Obese Heart: RRR, no murmur, no gallops, no rubs, normal peripheral pulses Respiratory: CTAB, no wheezes, no rales, no ronchi, normal chest expansion, no tachypnea, normal percussion Gastrointestinal: soft, non-tender, non-distended, normal bowel sounds, no palpable masses, no hepatomegaly, no splenomegaly, no bruit Extremities: no cyanosis, no clubbing, no edema Skin: normal turgor, no lesions, no rashes Neurological: cranial nerve grossly intact, no weakness, no focal deficits, no new deficit Neurological - other findings: Slight decreased sensation to light touch BLE, mild weakness BLE. Psychiatric: normal affect, normal behavior, A&O x 3 Hosp A/P (1) Lymphoma involving lung Code(s): C85.99 - NON-HODGKIN LYMPHOMA, UNSP, EXTRANODAL AND SOLID ORGAN SITES Status: Acute (2) Large B-cell lymphoma Code(s): C85.10 - UNSPECIFIED B-CELL LYMPHOMA, UNSPECIFIED SITE Status: Acute (3) Chest pain Code(s): R07.9 - CHEST PAIN, UNSPECIFIED Status: Acute (4) Obesity Code(s): E66.9 - OBESITY, UNSPECIFIED Status: Chronic Qualifiers: Obesity classification: adult class 3 (BMI >= 40) Body mass index: BMI 40.0-44.9 - Plan Lymphoma: Patient initially presented with some pain in his chest area. CT scan of the chest revealed the mass lesion invading the T3-4 area and ribs. He subsequently had biopsy confirming lymphoma. Subsequently had surgical debridement of the wound away from the spine. Oncology was consulted. Patient is to have chemothe rapy initiated. Apparently there were lacking elements to the chemotherapy regimen in the pharmacy. Hopefully get that resolved today and get his treatment started. He will need external beam radiation therapy soon. It was felt that he would benefit from a short course of rehab prior to initiating this. The mattress sutures in the upper back surgical site were placed so that they could stay in longer as needed for him to go through treatment to ensure adequate closure and healing of the wound in spite of early initiation of chemoradiation. Lower extremity weakness/paresthesias: Secondary to the compression of the cord from the initial lymphoma tumor. Continue on the physical therapy. Plan is for the patient to go to rehab tomorrow.
[2020-07-17] MEDS ORDERED: PEGFILGRASTIM-JMDB 6 MG/0.6 ML SYRINGE SQ SCH (08:00)
--- NOTE | 2020-07-17 09:28 | PDOC.HOSPP ---
- Subjective Encounter Date: 07/17/20 Encounter Time: : Subjective: f/u for Large B-cell lymphoma initiated on chemotherapy 07/16/20. Awaiting dose of Fulphila on 07/18/20 then potential transfer to rehab. Feels better overall and ambulated with RW in room today. - Objective Vital Signs & Weight: Vital Signs (12 hours) Temp Pulse Resp BP BP Pulse Ox 07/17/20 08:00 98.8 F 66 18 118/58 L 97 07/17/20 04:00 98.4 F 51 L 16 110/59 L 96 07/16/20 23:57 98.2 F 61 16 111/61 94 L Weight Admit Weight 302 lb 6.4 oz Weight 291 lb I&O: 07/16/20 07/17/20 07/18/20 06:59 06:59 06:59 Intake Total 3830 3374 24 Output Total 5600 4650 Balance -8587 -5298 24 Result Diagrams: 07/16/20 05:45 07/16/20 05:45 Radiology Reviewed by me: Yes (MRI brain - empty sella, no mets) Hospitalist ROS - Medication Medications: Active Medications Generic Name Dose Route Start Last Admin Trade Name Freq PRN Reason Stop Dose Admin Acetaminophen 1,000 mg 07/16/20 07:31 07/16/20 12:03 Acetaminophen 500 Mg Tab PO 1,000 mg WILLCALL PRN Administration Headache/Fever or Pain Dexamethasone 4 mg 07/09/20 09:00 07/16/20 20:04 Dexamethasone 4 Mg/Ml Vial SLOW IVP 4 mg BID PRAVIN Administration Fosaprepitant 150 mg/ Sodium 145 mls @ 290 mls/hr 07/16/20 07:30 07/17/20 02:58 Chloride IVPB 145 mls WILLCALL PRAVIN Administration Palonosetron 0.25 mg/ Sodium 55 mls @ 165 mls/hr 07/16/20 07:30 07/17/20 03:34 Chloride IVPB 55 mls WILLCALL PRAVIN Administration Dexamethasone Sodium Phosphate 52 mls @ 156 mls/hr 07/16/20 07:30 07/17/20 03:57 20 mg/ Sodium Chloride IVPB 52 mls WILLCALL PRAVIN Administration Diphenhydramine HCl 50 mg/ 51 mls @ 153 mls/hr 07/16/20 07:31 07/16/20 12:03 Sodium Chloride IVPB 51 mls WILLCALL PRN Administration Itching & Insomnia Cyclophosphamide 1.86 gm/ 343 mls @ 343 mls/hr 07/16/20 07:45 07/17/20 04:20 Sodium Chloride IVPB 343 mls WILLCALL PRAVIN Administration Rituximab-abbs 500 mg/ 580 mls @ 0 mls/hr 07/16/20 11:15 07/16/20 13:29 Rituximab-abbs 300 mg/ Sodium IVPB 580 mls Chloride WILLCALL PRAVIN Administration As Directed Doxorubicin HCl 124 mg/ Sodium 112 mls @ 224 mls/hr 07/16/20 11:45 07/17/20 05:32 Chloride IVPB 112 mls WILLCALL PRAVIN Administration Vincristine Sulfate 2 mg/ 52 mls @ 0 mls/hr 07/16/20 12:00 07/17/20 06:17 Sodium Chloride IVPB 52 mls WILLCALL PRAVIN Administration As Directed Pantoprazole Sodium 40 mg 07/09/20 09:00 07/16/20 08:39 Pantoprazole 40 Mg Tab PO 40 mg DAILY PRAVIN Administration Sodium Chloride 10 ml 07/06/20 00:42 07/16/20 20:04 Flush - Normal Saline 10 Ml Syringe IVF 10 ml Q12HR PRN Administration Saline Flush Tizanidine HCl 4 mg 07/09/20 18:17 07/10/20 19:54 Tizanidine Hcl 4 Mg Tab PO 4 mg Q6H PRN Administration Muscle Spasm - Exam General Appearance: NAD, awake alert Eye: PERRL, anicteric sclera ENT: normocephalic atraumatic, no oropharyngeal lesions Neck: supple, symmetric, no JVD, no thyromegaly, no lymphadenopathy Heart: RRR, no murmur, no gallops, no rubs, normal peripheral pulses Heart - other findings: S1, S2 Respiratory: CTAB, no wheezes, no rales, no ronchi, normal chest expansion Gastrointestinal: soft, non-tender, non-distended, normal bowel sounds, no palpable masses Extremities: no cyanosis, no clubbing, no edema Skin: normal turgor, no lesions Neurological: cranial nerve grossly intact, no new deficit Neurological - other findings: BLE weakness Musculoskeletal: normal tone, generalized weakness Psychiatric: normal affect, A&O x 3 Hosp A/P (1) Large B-cell lymphoma Code(s): C85.10 - UNSPECIFIED B-CELL LYMPHOMA, UNSPECIFIED SITE Status: Acute Plan: s/p initial chemotherapy, plan for Fulphila 07/18/20, continue Prednisone (2) Lymphoma involving lung Code(s): C85.99 - NON-HODGKIN LYMPHOMA, UNSP, EXTRANODAL AND SOLID ORGAN SITES Status: Acute Plan: See above #1, s/p tumor resection with decompressive laminectomy (3) Normocytic anemia Code(s): D64.9 - ANEMIA, UNSPECIFIED Status: Chronic Plan: Stable H/H trend currently, serial CBC monitoring (4) Chest pain Code(s): R07.9 - CHEST PAIN, UNSPECIFIED Status: Acute Plan: Secondary to lymphoma, improved s/p resection and decompression of T-spine - Plan continue antibiotics, PT/OT, social work nurse, incentive spirometry, out of bed/ambulate, DVT proph w/SCDs Stable currently Continue Chemotherapy per medical oncology Plan for XRT in the near future PT/OT for ambulation Pain control as needed Prednisone 100mg daily Fulphila injection 07/18/20 Likely transfer to inpt rehab 07/18/20
[2020-07-17] MEDS: predniSONE 50 MG TAB PO SCH (10:01)
[2020-07-17] MEDS: Dexamethasone 4 mg/ml Vial SLOW IVP SCH ×2 (10:02→20:34)
--- NOTE | 2020-07-17 16:44 | PDOC.MOPN ---
Interval History: in chair, states walking improved - Vital Signs Vital Signs: Vital Signs (12 hours) Temp Pulse Resp BP Pulse Ox 07/17/20 08:00 98.8 F 66 18 118/58 L 97 Weight Admit Weight 302 lb 6.4 oz Weight 291 lb - Physical Exam HEENT: Atraumatic, PERRLA, EOMI, Mucous membr. moist/pink Lungs: Clear to auscultation, Normal air movement Cardiovascular: Regular rate, Normal S1, Normal S2, No murmurs, Gallops, Rubs Abdomen: Normal bowel sounds, Soft, No tenderness, No hepatospenomegaly, No masses Extremities: Other Neurological: Normal speech - Labs Result Diagrams: 07/16/20 05:45 07/16/20 05:45 Lab results: Laboratory Results - last 24 hr 07/11/20 11:31: Cytogenetics Report Status: lab reviewed by me A/P - Problem (1) Lymphoma involving lung Current Visit: Yes Code(s): C85.99 - NON-HODGKIN LYMPHOMA, UNSP, EXTRANODAL AND SOLID ORGAN SITES Status: Acute - Plan Plan: 1. fulphila in am 2. need 3 more days of prednisone 100mg 3. consider IT chemo with MTX, cycle 2. FISH pending 4. f/u in office when out of rehab
[2020-07-18 06:45] VITALS: BP 124/60; TEMP 97.9
[2020-07-18] MEDS ORDERED: PEGFILGRASTIM-JMDB 6 MG/0.6 ML SYRINGE ONE (09:26)
[2020-07-18] MEDS: predniSONE 50 MG TAB PO SCH (09:29)
[2020-07-18] MEDS: Dexamethasone 4 mg/ml Vial SLOW IVP SCH (09:30)
--- NOTE | 2020-07-18 10:11 | PDOC.MOPN ---
Interval History: no complaints - Vital Signs Vital Signs: Vital Signs (12 hours) Temp Pulse Resp BP Pulse Ox 07/18/20 06:44 97.9 F 62 18 124/60 98 Weight Admit Weight 302 lb 6.4 oz Weight 291 lb - Physical Exam General: Alert, Oriented x3, No acute distress Lungs: Clear to auscultation, Normal air movement Cardiovascular: Regular rate, Normal S1, Normal S2, No murmurs, Gallops, Rubs Abdomen: Normal bowel sounds, Soft, No tenderness, No hepatospenomegaly, No masses Neurological: Normal speech - Labs Result Diagrams: 07/16/20 05:45 07/16/20 05:45 Lab results: Laboratory Results - last 24 hr 07/11/20 11:31: Cytogenetics Report Status: lab reviewed by me A/P - Problem (1) Lymphoma involving lung Current Visit: Yes Code(s): C85.99 - NON-HODGKIN LYMPHOMA, UNSP, EXTRANODAL AND SOLID ORGAN SITES Status: Acute - Plan Plan: Ok to go to rehab follow-up outpatient once out of rehab fulphila today call for fever.
--- NOTE | 2020-07-18 11:14 | DIS ---
DATE OF ADMISSION: 07/05/2020 DATE OF DISCHARGE: 07/18/2020 DISCHARGE DIAGNOSES: 1. Large B-cell lymphoma, status post initiation of chemotherapy. 2. Lymphoma involving the lung and spinal column, status post resection and decompressive laminectomy. 3. Normocytic anemia. 4. Chest pain secondary to #1, improved. 5. Bilateral lower extremity paresthesias and weakness. CONSULTATIONS: 1. Dr. Martinez with Medical Oncology Service. 2. Dr. Harden with Neurosurgical Service. 3. Dr. Oconnell with General Surgery Service. PERTINENT LABORATORY AND X-RAY FINDINGS: Basic metabolic profile within normal limits. Lactate dehydrogenase ranged between 208 to 383. CBC showed a hemoglobin ranging between 12.1 to 13.4. PT 13.9, INR 1.0, PTT 31.5. COVID-19 PCR not detected, 07/05/2020. CT of the thoracic spine dated 07/09/2020 showed large destructive rib lesion involving rib #4 on the left. Mass extends to the left T4 transverse process. Soft tissue biopsy of the left chest, dated 07/09/2020, showed diffuse large B-cell lymphoma. MRI of the brain dated 07/10/2020, showed no evidence of metastatic process. Empty sella noted. CT of the chest, abdomen, and pelvis dated 07/15/2020 showed pleural-based mass in the left posterior chest noted on prior imaging 07/09/2020. The remainder of the scan was unremarkable. Nuclear bone scan dated 07/15/2020, showed lymphomatous changes involving the left 4th rib. 2D transthoracic echocardiogram dated 07/07/2020, showed ejection fraction of 55% to 60%. Diastolic dysfunction noted. Mild to moderate left atrial enlargement. HOSPITAL COURSE: The patient initially presented complaining of central anterior chest pain, undergoing CT of the chest showing a tumor in the left posterior chest wall with involvement of the left 4th rib and T4 vertebral transverse process. Initial measurements were 8.6 x 7 cm x 6 cm. The patient underwent evaluation by the Medical Oncology Service after receiving empiric IV Levaquin and morphine sulfate. The patient underwent evaluation by the neurosurgical service, undergoing a decompressive laminectomy, T3 through T5 with resection of the intraspinal extradural lesion with sacrifice of the T4 nerve root on the left. The patient received IV dexamethasone and aggressive supportive management in addition to Medical Oncology evaluation. The patient underwent biopsy of the mass showing diffuse large B-cell lymphoma with recommendations to initiate chemotherapy during the hospital course. The patient tolerated the first chemotherapy on 07/16/2020 with recommendations to continue on an outpatient basis. The patient also received consultation with Radiation Oncology Service with recommendations for outpatient PET scanning to further define the patient's disease process. The patient will follow up on an outpatient basis to discuss further radiation and treatment options after discharge. The patient continued to clinically improve with high-dose prednisone therapy and was ambulating with a rolling walker with standby assistance. Due to the patient's neurologic deficit and general weakness, the patient was deemed an appropriate candidate for ongoing skilled care and has been approved to transfer to inpatient rehab on 07/18/2020. I have examined the patient at the time of discharge and discussed followup instructions. The patient verbalizes understanding and agreement, ready for discharge on 07/18/2020. DISCHARGE MEDICATIONS: 1. Tamsulosin 0.4 mg p.o. daily. 2. Prednisone 100 mg p.o. daily x3 days, stop on 07/21/2020. 3. Protonix 40 mg p.o. daily. 4. Scopolamine patch 1.5 mg transdermally q.72 hours p.r.n. 5. Zanaflex 4 mg p.o. q.6 hours p.r.n. FOLLOWUP: The patient may follow up with Dr. Rosibel Martinez with Medical Oncology Service. The patient will follow up with Dr. Harden with neurosurgical service. The patient may follow up with Dr. Jonah Martell with Radiation Oncology Service. CONDITION ON DISCHARGE: Fair. ACTIVITY: Ad susan, rolling walker with standby assistance. DIET: Regular. CODE STATUS: Full. DISPOSITION: Discharged to [facility] on 07/18/2020. TIME SPENT: Total time preparing and coordinating discharge is 37 minutes. Job ID: [id number]
== END 2020-07-18 13:30 | DRG 821 ==
LOC: 2NO 22:32 → ONC 07-08 16:41
PROVIDERS: ADMIT Internal Medicine; ATTEND Internal Medicine
PROC: 0JH60WZ Insertion of Totally Implantable Vascular Access Device into Chest Subcutaneous Tissue and Fascia, Open Approach (ICD-10-PCS; 2020-07-05)
PROC: 3E02340 Introduction of Influenza Vaccine into Muscle, Percutaneous Approach (ICD-10-PCS; 2020-07-07)
PROC: 00BT0ZZ Excision of Spinal Meninges, Open Approach (ICD-10-PCS; 2020-07-09)
PROC: 01N80ZZ Release Thoracic Nerve, Open Approach (ICD-10-PCS; 2020-07-09)
PROC: 0WB83ZX Excision of Chest Wall, Percutaneous Approach, Diagnostic (ICD-10-PCS; principal; 2020-07-10)
PROC: 02HV33Z Insertion of Infusion Device into Superior Vena Cava, Percutaneous Approach (ICD-10-PCS; 2020-07-12)
PROC: B518ZZA Fluoroscopy of Superior Vena Cava, Guidance (ICD-10-PCS; 2020-07-12)
PROC: 07DR3ZX Extraction of Iliac Bone Marrow, Percutaneous Approach, Diagnostic (ICD-10-PCS; 2020-07-15)
PROC: 3E0430M Introduction of Antineoplastic, Monoclonal Antibody, into Central Vein, Percutaneous Approach (ICD-10-PCS; 2020-07-16)
DX: C83.32 Diffuse large B-cell lymphoma, intrathoracic lymph nodes (principal); C79.49 Secondary malignant neoplasm of other parts of nervous system; C79.51 Secondary malignant neoplasm of bone; Z68.41 Body mass index [BMI] 40.0-44.9, adult; G95.29 Other cord compression; M54.14 Radiculopathy, thoracic region; J30.2 Other seasonal allergic rhinitis; E66.9 Obesity, unspecified; D64.9 Anemia, unspecified; Z23 Encounter for immunization; Z87.891 Personal history of nicotine dependence; Z86.718 Personal history of other venous thrombosis and embolism; Z88.8 Allergy status to other drugs, medicaments and biological substances
CPT/HCPCS: 20225; 32405; 36415; 70553; 71045; 71260; 72128; 72157; 74177; 76000; 77012; 78306; 80048; 80053; 83615; 84550; 85025; 85097; 85610; 85730; 88184; 88237; 88305; 88311; 88313; 88341; 88342; 88360; 90471; 90662; 93306; 94640; A9503; A9579; G0008; J0690; J1100; J1170; J1200; J1453; J1642; J1885; J1956; J2001; J2250; J2270; J2405; J2469; J2704; J2765; J3010; J3370; J3490; J7030; J7050; J7512; J7620; J9000; J9070; J9370; Q5108; Q5115; Q9967; S0028

== ENCOUNTER 2020-09-10 11:11 | Outpatient (CLI) | payer BC ==
--- NOTE | 2020-09-10 15:38 | PET ---
PET CT: 09/10/20 HISTORY: 55-year-old male with diffuse large B-cell lymphoma. Patient is currently undergoing chemotherapy. Ex am was requested to evaluate response to treatment and subsequent treatment planning. COMPARISON: None. CORRELATION: CT chest, abdomen and pelvis and whole body bone scan of 07/15/20. FINDINGS: There is focal increased uptake in the posterior aspect of the tongue on the left with an SUV of 9.9. No jennifer hypermetabolism is seen in the neck, mediastinum, hilar regions, axillae, abdomen, pelvis or inguinal regions. No hypermetabolic pulmonary nodules, liver, adrenal or skeletal lesions are seen. There is physiologic activity in the GI and tracts and the visualized portions of the brain. The CT scan used for attenuation correction demonstrates no evidence of pleural effusions or ascites. There are postop changes in the upper back and the posterior aspect of the left upper chest. IMPRESSION: Focally increased uptake in the left posterior tongue should be evaluated with direct visualization. No other hypermetabolic lesions are identified. POS: [facility]
== END 2020-09-10 11:12 | disposition home or self-care (01) ==
LOC: PET 11:11
PROVIDERS: ATTEND Internal Medicine Hematology & Oncology
DX: C83.32 Diffuse large B-cell lymphoma, intrathoracic lymph nodes (principal)
CPT/HCPCS: 78815; A9552

== ENCOUNTER 2020-11-29 07:35 | Outpatient (CLI) | payer BC ==
--- NOTE | 2020-11-29 10:19 | PET ---
Radionucleotide PET scan with CT attenuation correction HISTORY: Diffuse large B-cell lymphoma. Intrathoracic lymph nodes. Restaging. COMPARISON: 09/10/2020. FINDINGS: Postoperative changes of the thoracic spine are again demonstrated with minimal, borderline hypermetabolic reactive activity max SUV 2.6. The previously enlarged non-hypermetabolic left supraclavicular lymph node is now 1.0 cm short axis d iameter on the axial images. Asymmetric uptake at the posterior aspect of the tongue, greater on the left than the right, now show s max SUV 9.7 (previously 9.9). Reactive appearing uptake noted at a right upper second molar. A focal area of significantly asymmetric uptake involves the anterior medial aspect of the left tempo ral lobe. It is favored to be intra-axial location based on the fused images and shows max SUV 16.6. While the intensity of uptake is not out of alignment compared to the frontoparietal cortex and basal ganglia, the asymmetry related to the temporal lobes is of concern. Further evaluation would be warranted. No other new areas of suspicious pathologic activity. IMPRESSION : A new focal, intra-axial hypermetabolic focus at the medial anterior aspect of the left temporal lobe . While an intra-axial metastatic lesion is usually not well evaluated on PET scan, the appearance and asymmetry warrant concern. Please consider MRI brain, without and with gadolinium contrast, for better evaluation. Otherwise stable exam.
== END 2020-11-29 07:36 | disposition home or self-care (01) ==
LOC: PET 07:35
PROVIDERS: ATTEND Internal Medicine Hematology & Oncology
DX: C83.32 Diffuse large B-cell lymphoma, intrathoracic lymph nodes (principal)
CPT/HCPCS: 78815; A9552

== ENCOUNTER 2020-12-05 07:20 | Outpatient (CLI) | payer BC ==
[2020-12-05 07:57] LABS: Estimated GFR-MDRD - POC Greater than 90
[2020-12-05] MEDS ORDERED: Magnevist 469MG/ML 20 ML VIAL ONE (13:26)
== END 2020-12-05 07:21 | disposition home or self-care (01) ==
LOC: MRI 07:20
PROVIDERS: ATTEND Internal Medicine Hematology & Oncology
DX: R93.7 Abnormal findings on diagnostic imaging of other parts of musculoskeletal system (principal); C83.32 Diffuse large B-cell lymphoma, intrathoracic lymph nodes; R20.2 Paresthesia of skin; C79.31 Secondary malignant neoplasm of brain
CPT/HCPCS: 70553; 82565; A9579